=== PATIENT | female | born 1950 | race Caucasian/White ===

== ENCOUNTER 2017-03-15 08:22 | Emergency (ER) | payer OTHER ==
[~2017-03-15] VITALS: Ht 157.5 cm; Wt 59.1 kg
[~2017-03-15 08:22] MED LIST: TYL500 PO
[2017-03-15 08:23] VITALS: Ht 157.5 cm; Wt 59.1 kg
[2017-03-15] MEDS ORDERED: morphine 4 MG/ML VIAL IV STA (08:42)
[2017-03-15] MEDS ORDERED: SOD CHLORIDE 0.9% 500 ML IV STA (08:42)
[2017-03-15] MEDS ORDERED: ONDANSETRON 4 MG INJ IV STA (08:42)
[2017-03-15 09:08] LABS: ADD SCAN DIFF NO
[2017-03-15 09:10] LABS: BASOPHIL # 0.1 10^3/ul (0.0-0.1); BASOPHILS % 1.1 % (0.0-2.0); EOSINOPHILS # 0.1 10^3/ul (0.0-0.5); EOSINOPHILS % 2.2 % (0.0-7.0); HEMOGLOBIN 12.7 g/dl (12.0-16.0); LYMPHOCYTES # 1.4 10^3/ul (0.8-2.9); MEAN CORPUSCULAR HEMOGLOBIN 30.9 pg (29.0-33.0); MEAN CORPUSCULAR HGB CONC 34.3 g/dl (32.0-37.0); MEAN PLATELET VOLUME 8.8 fl (7.4-10.4); MONOCYTE # 0.3 10^3/ul (0.3-0.9); MONOCYTES % 6.5 % (0.0-11.0); NEUTROPHIL # 2.8 10^3/ul (1.6-7.5); PLATELET COUNT 331 10^3/UL (140-415); RED BLOOD COUNT 4.11 10^6/ul (4.20-5.40); RED CELL DISTRIBUTION WIDTH 14.1 % (11.5-14.5); WHITE BLOOD COUNT 4.6 10^3/ul (4.8-10.8)
[2017-03-15 09:23] LABS: ALBUMIN 4.3 g/dl (3.3-4.9)
[2017-03-15 09:24] LABS: POTASSIUM 3.8 mmol/L (3.5-5.1)
[2017-03-15 09:26] LABS: BILIRUBIN,INDIRECT 0.4 mg/dl (0-1.1); BILIRUBIN,TOTAL 0.4 mg/dl (0.2-1.3); CREATININE 0.59 mg/dl (0.44-1.00)
[2017-03-15 09:27] LABS: ALBUMIN/GLOBULIN RATIO 1.19; CALCIUM 9.4 mg/dl (8.4-10.2); TOTAL PROTEIN 7.9 g/dl (6.1-8.1)
[2017-03-15 09:36] LABS: ADD UMIC YES; URINE BILIRUBIN (Dip) NEGATIVE (NEGATIVE); URINE BLOOD (Dip) 1+ (NEGATIVE); URINE COLOR LT. YELLOW (YELLOW); URINE GLUCOSE (Dip) NEGATIVE (NEGATIVE); URINE KETONES (Dip) NEGATIVE (NEGATIVE); URINE LEUKOCYTE ESTERASE (Dip) TRACE (NEGATIVE); URINE NITRITE (Dip) NEGATIVE (NEGATIVE); URINE TOTAL PROTEIN (Dip) NEGATIVE (NEGATIVE); URINE UROBILINOGEN (Dip) 0.2 E.U./dL (0.1-1.0)
[2017-03-15] MEDS ORDERED: LORA-441 PO (10:00)
[2017-03-15] MEDS ORDERED: IBUP400T22 PO (10:00)
--- NOTE | 2017-03-15 10:00 | RADRPT ---
PROCEDURE: CT Head without contrast. CLINICAL INDICATION: Headaches TECHNIQUE: The study was performed utilizing a GE 64-slice multidetector CT scanner. Direct spiral axial CT images of the brain were obtained from the vertex to the skull base without contrast. Cor onal and sagittal reformat images are provided. The CTDI vol is 43.86 mGy and the DLP is 720.23 mGy -cm. The images were reviewed on a PACS workstation. COMPARISON: 05/04/2016 FINDINGS: The ventricles and cortical sulci are within normal limits for the patient's age. The mcdonnell-white ma tter differentiation is maintained. No intra or extra-axial fluid collection or mass effect or shif t in the midline structures is seen. The visualized paranasal sinuses, mastoid air cells, orbits, a nd calvarium are unremarkable. A partial empty sella is seen. IMPRESSION: No acute intracranial pathology. RPTAT: HPNM Physician Di Date Time Electronically viewed and signed by Physician Di on 03/15/2017 10:00 /
--- NOTE | 2017-03-15 10:01 | ERD ---
ER Documentation Chief Complaint Date/Time DATE: 03/15/17 TIME: 10:01 Chief Complaint headache x 1 week got worse today HPI 66-year-old woman complains of posterior headache 1 week similar to previous episodes. She states that this is not the worst headache of her life and also complains of anxiety. Her son was at the bedside states she has been recently anxious due to her recent financial and family issues. She has had no suicidal homicidal ideation, no slurred speech, no weakness in arms or legs, no fevers or chills, no vomiting or diarrhea. ROS All systems reviewed and are negative except as per history of present illness. Medications Home Meds Active Scripts Ibuprofen* (Motrin*) 400 Mg Tab, 400 MG PO Q8 for PAIN AND/OR INFLAMMATION, #30 TAB Prov:CHRISTOPHER GUEVARA MD 03/15/17 Lorazepam* (Ativan*) 0.5 Mg Tablet, 0.5 MG PO BID Y for MUSCLE SPASMS, #10 TAB Prov:CHRISTOPHER GUEVARA MD 03/15/17 Acetaminophen* (Tylenol*) 500 Mg Tab, 500 MG PO Q4H Y for MILD PAIN LEVEL 1-3, # 14 TAB Prov:ALINE ANTUNEZ DO 05/05/16 Allergies Allergies: Coded Allergies: No Known Drug Allergies (Verified Allergy, Unknown, 05/05/16) PMhx/Soc None Hx Cardiac Disorders: Yes (HTN) Hx Psychiatric Problems: No Hx Miscellaneous Medical Probl: Yes (inc cholesterol) Hx Alcohol Use: No Hx Substance Use: No Hx Tobacco Use: No Smoking Status: Never smoker FmHx Family History: diabetes Physical Exam Vitals Vital Signs Date Time Temp Pulse Resp B/P Pulse Ox O2 Delivery O2 Flow Rate FiO2 03/15/17 10:23 68 20 145/76 96 Room Air 03/15/17 08:50 76 17 160/80 94 Room Air 03/15/17 08:23 98.1 80 17 176/82 95 Physical Exam GENERAL: Well-developed, well-nourished, appears anxious HEENT: Moist mucous membranes, pink conjunctiva, no cervical spine tenderness or step-off deformities, no goiter, no jaundice or icterus, extraocular movements intact without pain. No submandibular induration, and no pharyngeal erythema NEURO: Alert and oriented 3, cranial nerves II through XII intact bilaterally, pupils equal round reactive to light, no focal deficits or facial asymmetry, sensation intact distally Strength 5/5 in upper and lower extremities bilaterally CARDIAC: Regular rate and rhythm, no murmurs rubs or gallops LUNGS: Clear bilaterally no wheezing crackles or stridor ABDOMEN: Soft nontender, no guarding, no rigidity, no rebound, no psoas sign no obturator sign. Normoactive bowel sounds SKIN: Warm and dry to touch, no abrasions, contusions, or hematomas, no lacerations, no ecchymosis, no target lesions, and without ulcers EXTREMITIES: No clubbing cyanosis or edema, calves are bilaterally symmetrical, no Homans sign, no popliteal cord sign. Distal pulses equal and bilateral PSYCH: Anxious Result Diagram: 03/15/17 0848 03/15/17 0848 Results 24 hrs Laboratory Tests Test 03/15/17 08:48 03/15/17 09:12 White Blood Count 4.610^3/ul Red Blood Count 4.1110^6/ul Hemoglobin 12.7g/dl Hematocrit 37.0% Mean Corpuscular Volume 90.0fl Mean Corpuscular Hemoglobin 30.9pg Mean Corpuscular Hemoglobin Concent 34.3g/dl Red Cell Distribution Width 14.1% Platelet Count 28275^3/UL Mean Platelet Volume 8.8fl Neutrophils % 60.0% Lymphocytes % 30.0% Monocytes % 6.5% Eosinophils % 2.2% Basophils % 1.1% Nucleated Red Blood Cells % 0.0/100WBC Neutrophils # 2.810^3/ul Lymphocytes # 1.410^3/ul Monocytes # 0.310^3/ul Eosinophils # 0.110^3/ul Basophils # 0.110^3/ul Nucleated Red Blood Cells # 0.010^3/ul Sodium Level 144mmol/L Potassium Level 3.8mmol/L Chloride Level 105mmol/L Carbon Dioxide Level 26mmol/L Anion Gap 17 Blood Urea Nitrogen 15mg/dl Creatinine 0.59mg/dl Glucose Level 119mg/dl Calcium Level 9.4mg/dl Total Bilirubin 0.4mg/dl Direct Bilirubin 0.00mg/dl Indirect Bilirubin 0.4mg/dl Aspartate Amino Transf (AST/SGOT) 24IU/L Alanine Aminotransferase (ALT/SGPT) 30IU/L Alkaline Phosphatase 76IU/L Total Protein 7.9g/dl Albumin 4.3g/dl Globulin 3.60g/dl Albumin/Globulin Ratio 1.19 Lipase 56U/L Urine Color LT. YELLOW Urine Clarity CLEAR Urine pH 6.5 Urine Specific [place] <=1.005 Urine Ketones NEGATIVE Urine Nitrite NEGATIVE Urine Bilirubin NEGATIVE Urine Urobilinogen 0.2 E.U./dL Urine Leukocyte Esterase TRACE Urine Microscopic RBC 0-2/HPF Urine Microscopic WBC 0-2/HPF Urine Squamous Epithelial Cells FEW Urine Hemoglobin 1+ Urine Glucose NEGATIVE% Urine Total Protein NEGATIVE Current Medications Medications (Trade) Dose Ordered Sig/Joselin Route PRN Reason Start Time Stop Time Status Last Admin Dose Admin Sodium Chloride (NS) 500 ml @ 500 mls/hr Q1H STAT IV 03/15/17 08:42 03/15/17 09:41 DC 03/15/17 08:53 Morphine Sulfate (morphine) 4 mg ONCE STAT IV 03/15/17 08:42 03/15/17 08:47 DC 03/15/17 08:54 Ondansetron HCl (Zofran Inj) 4 mg ONCE STAT IV 03/15/17 08:42 03/15/17 08:47 DC 03/15/17 08:54 Ketorolac Tromethamine (Toradol) 15 mg ONCE STAT IV 03/15/17 10:08 03/15/17 10:09 DC 03/15/17 10:15 Procedures/MDM IV line was established patient was placed on waste reduction coordinator rhythm strip revealed a sinus rhythm at about 80 bpm with upright P and T waves. Patient was afebrile I administered 1 L normal saline intravenously, morphine 4 mg IV, Zofran 4 mg IV with good effect. Although for later complaints of pain she was given Toradol [address] scan of the brain was performed that was negative for bleed mass or shift. CBC and electrolytes are normal, liver function tests were normal, troponin was negative, urine analysis negative for infection. Differential diagnoses considered, included but not limited to acute coronary syndrome, pulmonary embolism, aortic dissection, abdominal aortic aneurysm, sepsis, stroke, meningitis, encephalitis, pneumonia, appendicitis, cholecystitis , bowel obstruction, pyelonephritis, nephrolithiasis, cystitis, as well as metabolic, hematologic, and electrolyte abnormalities. As well as abscess, cellulitis, fractures, and dislocations. Patient feels much better at this time, and vital signs are normal, symptoms have improved. I did give strict instructions to return to the ED if symptoms continue or worsen, patient will otherwise follow-up with primary care physician. Patient understood instructions and agreed to plan. Disclaimer: Inadvertent spelling or grammatical errors are likely due to EHR/ dictation software use and do not reflect on the overall quality of patient care. Departure Diagnosis: Primary Impression: Anxiety Additional Impression: Headache Headache type: tension-type Headache chronicity pattern: acute headache Intractability: not intractable Qualified Code: G44.209 - Acute non intractable tension-type headache Condition: Good Patient Instructions: Anxiety Reaction, Headache, Tension CHRISTOPHER GUEVARA MD March 15, 2017 10:01
[2017-03-15 10:08] LABS: SQUAMOUS EPITHELIAL CELL,UR FEW; URINE RBCS 0-2 /HPF (0)
[2017-03-15] MEDS ORDERED: KETOROLAC 15 MG INJ IV STA (10:08)
[2017-03-15 10:23] VITALS: BP 145/76; PULSE 68; RESP 20
== END 2017-03-15 10:26 | disposition home or self-care (01) ==
LOC: E/R 08:22
DX: F41.9 Anxiety disorder, unspecified (principal); G44.209 Tension-type headache, unspecified, not intractable; R40.2142 Coma scale, eyes open, spontaneous, at arrival to emergency department; R40.2252 Coma scale, best verbal response, oriented, at arrival to emergency department; R40.2362 Coma scale, best motor response, obeys commands, at arrival to emergency department; I10 Essential (primary) hypertension
CPT/HCPCS: 36415; 70450; 80053; 81001; 83690; 85025; 96374; 96375; 99285; J1885; J2270; J2405; J7040; 81003

== ENCOUNTER 2017-04-25 13:17 | Inpatient (IN) | payer OTHER ==
[~2017-04-25] VITALS: Ht 152.4 cm; Wt 65.1 kg
[~2017-04-25 13:17] MED LIST changes: +IBUP400T22 PO; +LORA-441 PO
[2017-04-25] MEDS ORDERED: NITROGLYCERIN 2% 1 GM OINT PKT TD STA (14:07)
[2017-04-25] MEDS ORDERED: ASPIRIN 325 MG TAB PO STA (14:07)
[2017-04-25] MEDS ORDERED: ATOR20TA38 PO (14:24)
[2017-04-25] MEDS ORDERED: LOSA50TA6 PO (14:24)
[2017-04-25] MEDS ORDERED: MECLIZINE 12.5 MG TAB PO ONE (14:30)
[2017-04-25 14:32] LABS: BASOPHILS % 0.4 % (0.0-2.0); EOSINOPHILS % 0.1 % (0.0-7.0); HEMATOCRIT 37.1 % (37.0-47.0); HEMOGLOBIN 12.5 g/dl (12.0-16.0); LYMPHOCYTES # 1.3 10^3/ul (0.8-2.9); LYMPHOCYTES % 18.6 % (15.0-51.0); MEAN CORPUSCULAR HEMOGLOBIN 29.9 pg (29.0-33.0); MEAN CORPUSCULAR HGB CONC 33.7 g/dl (32.0-37.0); MEAN CORPUSCULAR VOLUME 88.8 fl (82.0-101.0); MEAN PLATELET VOLUME 8.9 fl (7.4-10.4); MONOCYTE # 0.3 10^3/ul (0.3-0.9); MONOCYTES % 4.6 % (0.0-11.0); NEUTROPHIL # 5.5 10^3/ul (1.6-7.5); PLATELET COUNT 324 10^3/UL (140-415); RED BLOOD COUNT 4.18 10^6/ul (4.20-5.40); RED CELL DISTRIBUTION WIDTH 13.8 % (11.5-14.5); WHITE BLOOD COUNT 7.2 10^3/ul (4.8-10.8)
[2017-04-25 14:40] LABS: INR 0.94; PROTIME 12.6 Sec (12.2-14.2)
[2017-04-25 14:41] LABS: PARTIAL THROMBOPLASTIN TIME 25.9 Sec (25.0-35.0)
[2017-04-25 14:42] LABS: CREATINE KINASE 69 IU/L (23-200)
[2017-04-25 14:43] LABS: CALCIUM 9.8 mg/dl (8.4-10.2); CREATININE 0.53 mg/dl (0.44-1.00)
[2017-04-25 14:44] LABS: ADD SCAN DIFF NO
--- NOTE | 2017-04-25 14:48 | ERA ---
ER Documentation Chief Complaint Date/Time DATE: 04/25/17 TIME: 14:45 Chief Complaint DIZZINESS, WEAKNESS, PAIN ON LEFT SIDE OF BODY, ON AND OFF HPI This is a 66-year-old female referred by primary care physician because of multiple complaints. The patient has multiple complaints that include dizziness , vertigo and chest pain. She states that when she woke up this morning every time she turns her head to the left she has a room spinning sensation that is sudden in onset and sudden offset. During this time she also has had pain to the left side of her body that is dull aching and sharp. The patient also notes left-sided chest pain. She has had this for some time and usually states that when she walks or exerts herself the pain gets worse. She has mild discomfort now that is 2 out of 10. It is not reproducible, no pleuritic pain and no back pain. ROS All systems reviewed and are negative except as per history of present illness. Medications Home Meds Reported Medications Atorvastatin Calcium* (Atorvastatin Calcium*) 20 Mg Tablet, 20 MG PO QHS, #30 TAB 04/25/17 Losartan Potassium* (Losartan Potassium*) 50 Mg Tablet, 50 MG PO DAILY, TAB 04/25/17 Discontinued Scripts Ibuprofen* (Motrin*) 400 Mg Tab, 400 MG PO Q8 for PAIN AND/OR INFLAMMATION, #30 TAB Prov:CHRISTOPHER GUEVARA MD 03/15/17 Lorazepam* (Ativan*) 0.5 Mg Tablet, 0.5 MG PO BID Y for MUSCLE SPASMS, #10 TAB Prov:CHRISTOPHER GUEVARA MD 03/15/17 Acetaminophen* (Tylenol*) 500 Mg Tab, 500 MG PO Q4H Y for MILD PAIN LEVEL 1-3, # 14 TAB Prov:ALINE ANTUNEZ DO 05/05/16 Allergies Allergies: Coded Allergies: codeine (Unverified Adverse Reaction, Unknown, VOMIT, 04/25/17) PMhx/Soc Hx Cardiac Disorders: Yes (HTN) Hx Psychiatric Problems: No Hx Miscellaneous Medical Probl: Yes (inc cholesterol) Hx Alcohol Use: No Hx Substance Use: No Hx Tobacco Use: No FmHx Family History: No diabetes Physical Exam Vitals Vital Signs Date Time Temp Pulse Resp B/P Pulse Ox O2 Delivery O2 Flow Rate FiO2 04/25/17 14:49 82 18 132/73 98 Room Air 04/25/17 13:21 97.9 88 17 170/84 98 Physical Exam General: Well developed, well nourished, no acute distress Head: Normocephalic, atraumatic. Eyes: Pupils equally reactive, EOM intact ENT: Moist mucous membranes Neck: Supple, no lymphadenopathy Respiratory: Lungs clear bilaterally, no distress Cardiovascular: RRR, no murmurs, rubs, or gallops Abdominal: Soft, non-tender, non-distended, no peritoneal signs : Deferred MSK: No edema, no unilateral swelling, 5/5 strength Neurologic: Alert and oriented, moving all extremities, normal speech, no focal weakness, no cerebellar signs, normal rapid alternating movements, reproducible horizontal nystagmus with head movements to the left Skin: No rash Psych: Normal mood Result Diagram: 04/25/17 1410 04/25/17 1410 Results 24 hrs Laboratory Tests Test 04/25/17 14:10 White Blood Count 7.210^3/ul Red Blood Count 4.1810^6/ul Hemoglobin 12.5g/dl Hematocrit 37.1% Mean Corpuscular Volume 88.8fl Mean Corpuscular Hemoglobin 29.9pg Mean Corpuscular Hemoglobin Concent 33.7g/dl Red Cell Distribution Width 13.8% Platelet Count 76390^3/UL Mean Platelet Volume 8.9fl Neutrophils % 76.0% Lymphocytes % 18.6% Monocytes % 4.6% Eosinophils % 0.1% Basophils % 0.4% Nucleated Red Blood Cells % 0.0/100WBC Neutrophils # 5.510^3/ul Lymphocytes # 1.310^3/ul Monocytes # 0.310^3/ul Eosinophils # 0.010^3/ul Basophils # 0.010^3/ul Nucleated Red Blood Cells # 0.010^3/ul Prothrombin Time 12.6Sec Prothrombin Time Ratio 1.0 INR International Normalized Ratio 0.94 Activated Partial Thromboplast Time 25.9Sec Sodium Level 137mmol/L Potassium Level 4.0mmol/L Chloride Level 101mmol/L Carbon Dioxide Level 26mmol/L Anion Gap 14 Blood Urea Nitrogen 10mg/dl Creatinine 0.53mg/dl Glucose Level 103mg/dl Calcium Level 9.8mg/dl Creatine Kinase 69IU/L Creatine Kinase Index 1.2 Creatinine Kinase MB (Mass) 0.83ng/ml Troponin I < 0.012ng/ml Current Medications Medications (Trade) Dose Ordered Sig/Joselin Route PRN Reason Start Time Stop Time Status Last Admin Dose Admin Aspirin (Aspirin) 325 mg ONCE STAT PO 04/25/17 14:07 04/25/17 14:10 DC 04/25/17 15:46 Nitroglycerin (Nitroglycerin 2% Oint) 1 inch ONCE STAT TD 04/25/17 14:07 04/25/17 14:10 DC 04/25/17 14:45 Meclizine HCl (Antivert) 25 mg ONCE ONCE PO 04/25/17 14:30 04/25/17 14:31 DC 04/25/17 14:43 Lorazepam (Ativan) 0.5 mg ONCE ONCE IV 04/25/17 16:30 04/25/17 16:31 DC 04/25/17 16:33 Acetaminophen (Tylenol Tab) 1,000 mg ONCE STAT PO 04/25/17 16:13 04/25/17 16:14 DC 04/25/17 16:33 Ondansetron HCl (Zofran Inj) 4 mg ER BRIDGE PRN IV NAUSEA AND/OR VOMITING 04/25/17 17:00 04/26/17 16:59 Acetaminophen (Tylenol Tab) 650 mg ER BRIDGE PRN PO MILD PAIN/FEVER 04/25/17 17:00 04/26/17 16:59 Procedures/MDM EKG, MONITORS, & DIAGNOSTIC IMAGING: EKG: I reviewed and interpreted a 12-lead EKG. Rhythm: Normal sinus rhythm Ectopy: None Intervals: No abnormalities ST segments: No elevations or depressions T waves: No contiguous inversions Repeat EKG: EKG: I reviewed and interpreted a 12-lead EKG. Rhythm: Normal sinus rhythm Ectopy: None Intervals: No abnormalities ST segments: No elevations or depressions T waves: No contiguous inversions Chest x-ray: I reviewed and interpreted a 1 view of the chest Mediastinum: No enlargement Cardiac silhouette: No cardiomegaly Airspace: Clear lung jacobs bilaterally without evidence of pneumothorax Bones: No evidence of fracture CT brain: No acute intracranial process LAB INTERPRETATION: Negative troponin MEDICAL DECISION MAKING: The patient's history, physical exam and clinical presentation is concerning for possible cardiogenic etiology and acute coronary syndrome. The patient chest pain is exertional and somewhat concerning it does not appear she has had a thorough workup in the past. Additionally, the patient is also describing vertigo that seems very reproducible and consistent with benign positional vertigo. The patient does have pain to the left side of her body but has no motor weakness and her symptoms are not consistent with dissection, VVI or stroke. CT brain would be appropriate to rule out mass or hemorrhage. Aspirin to be held until after CT imaging. Based on the patient's clinical exam and history and risk factors, I have a much lower clinical concern for pulmonary embolism, acute aortic dissection, pneumothorax, pneumonia, cardiac tamponade HEART Score: 4 MACE Rate: 16.6% Shared Decision Making: We had a conversation regarding risk stratification, MACE rate, and the risks, benefits, alternatives of disposition planning options. Disposition planning: Would recommend inpatient hospital sedation given description of exertional chest pain with moderate risk profile. ER COURSE: Meclizine provided. Patient given saline. Patient was given aspirin after negative CT brain. I kept the patient and/or family informed of laboratory and diagnostic imaging results throughout the emergency room course. DISPOSITION PLAN: Telemetry admission for management of chest pain rule out acute coronary syndrome and have risk stratification possible provocative testing. CONSULTATION: Accepting care team and consultations: I discussed the current laboratory data, diagnostic imaging and emergency care provided. Admitting team: Dr. Ogden Admitting team indication: Insurance directed Departure Diagnosis: Primary Impression: Benign positional vertigo Qualified Code: H81.10 - Benign positional vertigo, unspecified laterality Additional Impression: Chest pain Qualified Code: R07.9 - Chest pain, unspecified type Condition: ALLI Hickman MD Apr 25, 2017 14:48
--- NOTE | 2017-04-25 14:51 | RADRPT ---
PROCEDURE: XR Chest. CLINICAL INDICATION: Chest pain TECHNIQUE: AP view of the chest was obtained. COMPARISON: None. FINDINGS: There are atherosclerotic calcifications of the thoracic aorta. The cardiomediastinal silhouette i s within normal limits. The lungs are clear. No pleural effusion or pneumothorax is seen. Visuali zed osseous structures appear intact. IMPRESSION: No evidence of active cardiopulmonary disease. RPTAT: VV .Chuy Albright MD, MD Date Time Electronically viewed and signed by .Chuy Albright MD, on 04/25/2017 14:51 .O/
[2017-04-25 14:56] LABS: CK-MB 0.83 ng/ml (0.0-2.4)
[2017-04-25 15:16] LABS: TROPONIN-I < 0.012 ng/ml (0.00-0.12)
--- NOTE | 2017-04-25 15:26 | RADRPT ---
PROCEDURE: Noncontrast CT Head. CLINICAL INDICATION: Headaches. TECHNIQUE: Noncontrast CT of the head was obtained. The administered radiation dose was CTDI vol = 43.58 mGy, DLP = 630.02 mGy-cm. One or more of the following dose reduction techniques were used: Au tomated exposure control, Adjustment of the mA and/or kV according to patient size, or Use of iterat karen reconstruction technique. COMPARISON: Noncontrast CT of the head from March 15, 2017. FINDINGS: There is minimal generalized cerebral volume loss. Affects volume There are mild vascular calcifications within the intracranial carotid arteries. There is no loss of mcdonnell-white differentiation to suggest acute territorial infarction. There is no acute intracranial hemorrhage or extra-axial fluid collection. There is no mass effect. No midline shift is identified. The orbits are within normal limits. The paranasal sinuses are well aerated. No destructive osseous lesion is identified. IMPRESSION: No significant change. 1. No acute intracranial hemorrhage. 2. Minimal generalized cerebral volume loss. Further findings as detailed above. RPTAT: PP .Ron Davis MD, MD Date Time Electronically viewed and signed by .Ron Davis MD, on 04/25/2017 15:26 .F/
[2017-04-25] MEDS ORDERED: ACETAMINOPHEN 500 MG TAB PO STA (16:13)
[2017-04-25] MEDS ORDERED: LORAZEPAM 2 MG INJ IV ONE (16:30)
[2017-04-25] MEDS ORDERED: ACETAMINOPHEN 325 MG TAB PO PRN (17:00)
[2017-04-25] MEDS ORDERED: ONDANSETRON 4 MG INJ IV PRN ×2 (17:00→18:00)
[2017-04-25] MEDS ORDERED: NACL 0.9% 3 ML SYG IV SCH (18:00)
[2017-04-25] MEDS ORDERED: morphine 2 MG INJ IV PRN (18:00)
[2017-04-25] MEDS ORDERED: MECLIZINE 25 MG TAB PO PRN (18:00)
--- NOTE | 2017-04-25 18:20 | HP ---
Date/Time of Note Date/Time of Note DATE: 04/25/17 TIME: 18:15 Assessment/Plan VTE Prophylaxis VTE Prophylaxis Intervention: LMWH Lines/Catheters IV [facility]from [facility] Saline Lock Assessment/Plan Chief Complaint/Hosp Course 1. Chest pain. To rule out acute coronary syndrome. Serial troponins will be obtained. A 2D echocardiogram will be obtained. Cardiology consult will be obtained. 2. Vertigo. Etiology unclear. Most probably benign paroxysmal positional vertigo. Brain CT scan negative. Will obtain orthostatic vital signs. Will start the patient on as needed labyrinthine sedatives. Will obtain a neurology consult. Will obtain a carotid Doppler study to evaluate for any carotid artery disease. 3. Essential hypertension. The patient will be resumed on her home antihypertensives. The patient will also be maintained on as needed antihypertensives for any systolic blood pressures greater than 160 mmHg. 4. Dyslipidemia. The patient will be continued on statins. A fasting lipid panel will be obtained. 5. Diarrhea. Most probably from viral gastroenteritis. We will obtain stool studies. Plan: The patient will be admitted to inpatient telemetry floor. The patient will be started on a low-cholesterol diet. The patient will be started on DVT prophylaxis and gastrointestinal prophylaxis. The patient will remain a full code. Activities will be with assist. The rest of the patient's management will be based on the clinical course, inputs from consultants, and the results of diagnostic studies. Based on the patient's clinical presentation, she most probably requires at least one midnight's stay for further management and evaluation of her clinical presentation. The case and management of this patient was fully discussed with Dr. Odgen. Problems: HPI/ROS Admit Date/Time Admit Date/Time Hx of Present Illness Reason for admission: Sent in by primary MD for further evaluation of dizziness , weakness, and chest pain. Consultants 1. Nikolay Yuan MD, Cardiology. 2. Neo Hinds MD, Neurology. This is a 66-year-old female with past medical history of essential hypertension and dyslipidemia who went to visit her primary care physician because of multiple complaints. The patient's physician referred the patient to the ER for further evaluation. The patient reported that she was completely fine on the night of 04/24/2017. Starting on the morning of 04/25/2017 she started feeling dizziness with vertigo and 2 episodes of nonbilious nonbloody vomiting. Patient also reported 3-4 episodes of watery diarrhea. Patient also reported left-sided chest pain that has been constant with no radiation. She reported no diaphoresis. She denied any fevers, chills, abdominal pain, hematochezia, melena, dysuria, hematuria, or pyuria. The patient verbalized that she had a complete cardiac workup done approximately an year ago with a 2D echocardiogram and treadmill test that was reportedly negative. In the emergency room, the patient's initial troponins were negative. The patient's CBC and BMP were within normal limits. The patient underwent a brain CT scan that showed no acute intracranial hemorrhage. The patient's chest x- ray was negative for any active cardiopulmonary disease. Patient's 12-lead EKG showed right bundle branch block. The patient was treated with a single dose of lorazepam, meclizine, aspirin, and transdermal nitroglycerin. The patient had a blood pressure of 170/84 upon presentation. ROS Constitutional: fatigue, nausea Eyes: no complaints ENT: no complaints Respiratory: no complaints Cardiovascular: chest pain, lightheadedness Gastrointestinal: diarrhea, nausea, vomiting Genitourinary: no complaints Musculoskeletal: no complaints Skin: no complaints Neurologic: dizziness Endocrine: no complaints Lymphatic: no complaints Psychological: no complaints Immunologic: no complaints PMH/Family/Social Past Medical History Medical History: high cholesterol, hypertension Past Surgical History Past Surgical Hx: other () Family History Significant Family History: heart disease (In father and siblings.) Social History The patient lives at home with her family Alcohol Use: none Smoking Status: Never smoker Drug Use: none Exam/Review of Systems Vital Signs Vitals Vital Signs Date Time Temp Pulse Resp B/P Pulse Ox O2 Delivery O2 Flow Rate FiO2 04/25/17 14:49 82 18 132/73 98 Room Air 04/25/17 13:21 97.9 Exam Exam General: Adequately build 66 year-old female lying in bed in no apparent distress. HEENT: Normocephalic, atraumatic. Eyes: Anicteric sclerae, conjunctivae clear. ENT: Nasal septum midline, oral mucosa moist. Neck supple, no JVD noticed. Respiratory: Bilaterally clear breath sounds. No use of accessory muscles of respiration. No adventitious breath sounds. Cardiovascular: S1, S2 heard. Regular rate and rhythm Abdomen: Soft, nontender, and nondistended. Bowel sounds positive in all 4 quadrants. Genitourinary: Deferred. Extremities: No cyanosis, no clubbing, no edema. Peripheral pulses palpable. Neurologic: Cranial nerves II through XII grossly intact. The patient is awake, alert, and oriented. Equal strength in all 4 extremities. No focal weakness. Skin: Normal skin turgor. No skin rashes. Labs Result Diagram: 04/25/17 1410 04/25/17 1410 Medications Medications Current Medications Ondansetron HCl (Zofran Inj) 4 mg Q6H PRN IV NAUSEA AND/OR VOMITING; Start at 18:00 Aspirin (Aspirin) 81 mg DAILY PO ; Start 04/26/17 at 09:00; Status UNV Morphine Sulfate (morphine) 2 mg Q4H PRN IV PAIN LEVEL 7-10; Start 04/25/17 at 18:00; Status UNV Famotidine (Pepcid) 20 mg Q12 PO ; Start 04/25/17 at 21:00; Status UNV Enoxaparin Sodium (Lovenox) 40 mg DAILY SC ; Start 04/26/17 at 09:00; Status UNV Meclizine HCl (Antivert) 25 mg TID PRN PO Vertigo; Start 04/25/17 at 18:00; Status UNV Hydralazine HCl (Apresoline) 10 mg Q6H PRN IV SBP>160; Start 04/25/17 at 18:30 ; Status UNV Atorvastatin Calcium (Lipitor) 20 mg QHS PO ; Start 04/25/17 at 21:00; Status UNV Losartan Potassium (Cozaar) 50 mg DAILY PO ; Start 04/26/17 at 09:00; Status UNV Procedures Procedures Brain CT Scan No acute intracranial process CXR No acute cardiopulmonary process. Twelve-lead EKG Right bundle branch block. GRACE ISSA NP Apr 25, 2017 18:20
[2017-04-25] MEDS ORDERED: hydrALAzine 20 MG INJ IV PRN (18:30)
[2017-04-25 19:56] LABS: CREATINE KINASE 58 IU/L (23-200)
[2017-04-25 20:08] LABS: CK-MB 0.64 ng/ml (0.0-2.4)
[2017-04-25 20:10] LABS: TROPONIN-I < 0.012 ng/ml (0.00-0.12)
[2017-04-25 20:32] LABS: THYROID STIMULATING HORMONE 0.544 MIU/L (0.465-4.680)
[2017-04-25 22:38] VITALS: Ht 152.4 cm; Wt 65.1 kg
[2017-04-25 22:42] VITALS: PULSE 67
[2017-04-25] MEDS: FAMOTIDINE 20 MG TAB PO SCH (22:55)
[2017-04-25] MEDS: ATORVASTATIN 20 MG TAB PO SCH (22:55)
[2017-04-25 23:00] VITALS: BP 128/66; PULSE 69; RESP 18
--- NOTE | 2017-04-25 23:05 | RADRPT ---
PROCEDURE: Carotid ultrasound CLINICAL INDICATION: Dizziness, carotid bruits TECHNIQUE: Dai scale, color doppler, spectral doppler ultrasound of the bilateral carotid and jerry tebral arteries. This study indirectly references the measurement of the distal ICA diameter as the denominator for s tenosis measurement. Validated velocity measurements with angiographic measurements, velocity criter ia are extrapolated from diameter data as defined by: *Cartoid artery stenosis: dai-scale and Doppl er US diagnosis. Society of Radiologists in Ultrasound Consensus Conference. Radiology 2003; 229: 34 0-346. SRU Consensus Conference Criteria for the Diagnosis of Carotid Artery Stenosis* Degree of Stenosis, % ICA PSV, cm/sec Plaque Estimate, % ICA/CCA PSV Ratio Normal <125 None <2.0 <50 <125 <50 <2.0 50 69 125-230 >50 2.0-4.0 >70 but less than near occlusion >230 >50 <4.0 Near occlusion High, low, or undetectable Visible Variable Total occlusion Undetectable Visible, no detectable lumen Not applicable COMPARISON: No prior studies are available for comparison. FINDINGS: Location Right CCA63 cm/sec Prox ICA 49 cm/sec Mid ICA61 cm/sec Dist ICA76 cm/sec ECA50 cm/sec ICA/CCA1.6 Left CCA62 cm/sec Prox ICA 56 cm/sec Mid PWG647 cm/sec Dist PYN023 cm/sec ECA71 cm/sec ICA/CCA2.0 Plaque burden: Poor visualization of the left internal carotid artery due to tortuosity. No evidence of right carotid plaque. Antegrade flow is seen within the vertebral arteries bilaterally. IMPRESSION: Elevated peak systolic velocities are measured within the left internal carotid artery however the v essel is very tortuous which degrades evaluation of plaque burden. Elevated velocities suggest a 50 - 69% stenosis however it is uncertain whether this is due to tortuosity or poorly visualized plaqu e. CT angiography of the extracranial circulation can be obtained for further evaluation. RPTAT: AADD .Soham Rayo MD, Date Time Electronically viewed and signed by .Soham Rayo MD, on 04/25/2017 23:04 .B/
[2017-04-26] VITALS (12 sets, daily range): BP systolic 108–143; BP diastolic 53–68; PULSE 59–72; RESP 15–18
[2017-04-26 02:22] LABS: CREATINE KINASE 53 IU/L (23-200)
[2017-04-26 02:34] LABS: CK-MB 0.63 ng/ml (0.0-2.4)
[2017-04-26 02:35] LABS: TROPONIN-I < 0.012 ng/ml (0.00-0.12)
[2017-04-26 08:39] LABS: BASOPHILS % 0.6 % (0.0-2.0); EOSINOPHILS # 0.1 10^3/ul (0.0-0.5); EOSINOPHILS % 2.9 % (0.0-7.0); HEMATOCRIT 34.7 % (37.0-47.0); HEMOGLOBIN 11.7 g/dl (12.0-16.0); LYMPHOCYTES # 2.1 10^3/ul (0.8-2.9); LYMPHOCYTES % 43.1 % (15.0-51.0); MEAN CORPUSCULAR HEMOGLOBIN 30.5 pg (29.0-33.0); MEAN CORPUSCULAR HGB CONC 33.7 g/dl (32.0-37.0); MEAN CORPUSCULAR VOLUME 90.4 fl (82.0-101.0); MEAN PLATELET VOLUME 9.1 fl (7.4-10.4); MONOCYTE # 0.5 10^3/ul (0.3-0.9); MONOCYTES % 9.8 % (0.0-11.0); NEUTROPHIL # 2.1 10^3/ul (1.6-7.5); NEUTROPHILS % 43.6 % (39.0-77.0); PLATELET COUNT 304 10^3/UL (140-415); RED BLOOD COUNT 3.84 10^6/ul (4.20-5.40); RED CELL DISTRIBUTION WIDTH 13.8 % (11.5-14.5); WHITE BLOOD COUNT 4.9 10^3/ul (4.8-10.8)
[2017-04-26 09:06] LABS: CHOL/HDL RATIO 4.3 RATIO
[2017-04-26 09:09] LABS: ALBUMIN 4.2 g/dl (3.3-4.9); ALBUMIN/GLOBULIN RATIO 1.61; BILIRUBIN,INDIRECT 0.4 mg/dl (0-1.1); BILIRUBIN,TOTAL 0.4 mg/dl (0.2-1.3); CALCIUM 9.7 mg/dl (8.4-10.2); CREATININE 0.59 mg/dl (0.44-1.00); POTASSIUM 4.2 mmol/L (3.5-5.1); TOTAL PROTEIN 6.8 g/dl (6.1-8.1)
[2017-04-26] MEDS: FAMOTIDINE 20 MG TAB PO SCH ×2 (09:17→20:08)
[2017-04-26] MEDS: LOSARTAN 50 MG TAB PO SCH (09:18)
[2017-04-26] MEDS: ASPIRIN 81 MG TAB PO SCH (09:18)
[2017-04-26] MEDS: ENOXAPARIN 40 MG/0.4 ML SYG SC SCH (09:23)
[2017-04-26 11:21] LABS: CREATINE KINASE 43 IU/L (23-200); MAGNESIUM 2.1 mg/dl (1.7-2.5)
[2017-04-26 11:34] LABS: CK-MB 0.59 ng/ml (0.0-2.4)
[2017-04-26 11:35] LABS: TROPONIN-I < 0.012 ng/ml (0.00-0.12)
--- NOTE | 2017-04-26 13:18 | PN ---
Date/Time of Note Date/Time of Note DATE: 04/26/17 TIME: 13:17 Assessment/Plan VTE Prophylaxis VTE Prophylaxis Intervention: SCD's Lines/Catheters IV C[facility]ter Type (from [facility] [place] Assessment/Plan Chief Complaint/Hosp Course 1. Chest pain. To rule out acute coronary syndrome. Serial troponins negative so far. Pending 2D echocardiogram. Cardiology evaluation pending 2. Vertigo. Etiology unclear. Most probably benign paroxysmal positional vertigo. Brain CT scan negative. Continue orthostatic vital signs. Will continue the patient on labyrinthine sedatives. Pending neurology consult. Carotid Doppler study showing elevated peak systolic velocities in the left internal carotid artery suggesting 50-69% stenosis. Will obtain a CT angiogram of the neck to further evaluate this finding. 3. Essential hypertension. Continue antihypertensives including PRN antihypertensives for any systolic blood pressures greater than 160 mmHg. 4. Dyslipidemia. The patient will be continued on statins. Fasting lipid panel suboptimal. 5. Diarrhea. Most probably viral gastroenteritis. Pending stool studies. 6. Prediabetes. Hemoglobin A1c 6.3. We will reinforce a low carbohydrate diet. Obtain dietary consult. 7. Fluids, electrolytes, and nutrition. Low-cholesterol diet. 8. DVT prophylaxis. Bilateral sequential compression devices. 9. Gastrointestinal prophylaxis with histamine 2 receptor blockers. Plan. Continue telemetry monitoring. Continue as needed meclizine. Await neurology and cardiology evaluation. Obtain neck CTA. Obtain brain MRI. Case discussed with . Problems: Subjective 24 Hr Interval Summary Free Text/Dictation Denies any chest pain. Still complaining of episodes of dizziness. Complains of nausea. Exam/Review of Systems Vital Signs Vitals Vital Signs Date Time Temp Pulse Resp B/P Pulse Ox O2 Delivery O2 Flow Rate FiO2 04/26/17 12:06 72 04/26/17 12:00 98.0 18 112/67 98 04/26/17 04:00 Room Air Intake and Output 04/25/17 04/25/17 04/26/17 15:00 23:00 07:00 Intake Total 240 ml Balance 240 ml Exam General: Adequately build 66 year-old female lying in bed in no apparent distress. HEENT: Normocephalic, atraumatic. Eyes: Anicteric sclerae, conjunctivae clear. ENT: Nasal septum midline, oral mucosa moist. Neck supple, no JVD noticed. Respiratory: Bilaterally clear breath sounds. No use of accessory muscles of respiration. No adventitious breath sounds. Cardiovascular: S1, S2 heard. Regular rate and rhythm Abdomen: Soft, nontender, and nondistended. Bowel sounds positive in all 4 quadrants. Genitourinary: Deferred. Extremities: No cyanosis, no clubbing, no edema. Peripheral pulses palpable. Neurologic: Cranial nerves II through XII grossly intact. The patient is awake, alert, and oriented. Equal strength in all 4 extremities. No focal weakness. Skin: Normal skin turgor. No skin rashes. Results Result Diagram: 04/26/17 0744 04/26/17 0741 Results 24 hrs Laboratory Tests Test 04/25/17 14:10 04/25/17 18:04 04/25/17 19:00 04/26/17 01:45 White Blood Count 7.2 # Red Blood Count 4.18 L Hemoglobin 12.5 Hematocrit 37.1 Mean Corpuscular Volume 88.8 Mean Corpuscular Hemoglobin 29.9 Mean Corpuscular Hemoglobin Concent 33.7 Red Cell Distribution Width 13.8 Platelet Count 324 Mean Platelet Volume 8.9 Neutrophils % 76.0 Lymphocytes % 18.6 Monocytes % 4.6 Eosinophils % 0.1 Basophils % 0.4 Nucleated Red Blood Cells % 0.0 Neutrophils # 5.5 Lymphocytes # 1.3 Monocytes # 0.3 Eosinophils # 0.0 Basophils # 0.0 Nucleated Red Blood Cells # 0.0 Prothrombin Time 12.6 Prothrombin Time Ratio 1.0 INR International Normalized Ratio 0.94 Activated Partial Thromboplast Time 25.9 Sodium Level 137 Potassium Level 4.0 Chloride Level 101 Carbon Dioxide Level 26 Anion Gap 14 Blood Urea Nitrogen 10 Creatinine 0.53 Glucose Level 103 Calcium Level 9.8 Creatine Kinase 69 58 53 Creatine Kinase Index 1.2 1.1 1.2 Creatinine Kinase MB (Mass) 0.83 0.64 0.63 Troponin I < 0.012 < 0.012 < 0.012 Vitamin D 1,25-Dihydroxy 30.0 Hemoglobin A1c 6.3 H Vitamin B12 Level > 1000 H Thyroid Stimulating Hormone (TSH) 0.544 Free Thyroxine 0.99 Test 04/26/17 07:41 04/26/17 07:44 04/26/17 10:30 Sodium Level 142 Potassium Level 4.2 Chloride Level 102 Carbon Dioxide Level 26 Anion Gap 18 H Blood Urea Nitrogen 10 Creatinine 0.59 Glucose Level 101 Calcium Level 9.7 Total Bilirubin 0.4 Direct Bilirubin 0.00 Indirect Bilirubin 0.4 Aspartate Amino Transf (AST/SGOT) 22 Alanine Aminotransferase (ALT/SGPT) 29 Alkaline Phosphatase 52 Total Protein 6.8 Albumin 4.2 Globulin 2.60 Albumin/Globulin Ratio 1.61 Triglycerides Level 165 H Cholesterol Level 226 H LDL Cholesterol, Calculated 141 HDL Cholesterol 52 Cholesterol/HDL Ratio 4.3 White Blood Count 4.9 # Red Blood Count 3.84 L Hemoglobin 11.7 L Hematocrit 34.7 L Mean Corpuscular Volume 90.4 Mean Corpuscular Hemoglobin 30.5 Mean Corpuscular Hemoglobin Concent 33.7 Red Cell Distribution Width 13.8 Platelet Count 304 Mean Platelet Volume 9.1 Neutrophils % 43.6 Lymphocytes % 43.1 Monocytes % 9.8 Eosinophils % 2.9 Basophils % 0.6 Nucleated Red Blood Cells % 0.0 Neutrophils # 2.1 Lymphocytes # 2.1 Monocytes # 0.5 Eosinophils # 0.1 Basophils # 0.0 Nucleated Red Blood Cells # 0.0 Phosphorus Level 3.0 Magnesium Level 2.1 Creatine Kinase 43 Creatine Kinase Index 1.4 Creatinine Kinase MB (Mass) 0.59 Troponin I < 0.012 Medications Medications Current Medications Ondansetron HCl (Zofran Inj) 4 mg Q6H PRN IV NAUSEA AND/OR VOMITING Last administered on 04/26/17 12:22; Admin Dose 4 MG; Start 04/25/17 at 18:00 Aspirin (Aspirin) 81 mg DAILY PO Last administered on 04/26/17 09:18; Admin Dose 81 MG; Start 04/26/17 at 09:00 Morphine Sulfate (morphine) 2 mg Q4H PRN IV PAIN LEVEL 7-10; Start 04/25/17 at 18:00 Famotidine (Pepcid) 20 mg Q12 PO Last administered on 04/26/17 09:17; Admin Dose 20 MG; Start 04/25/17 at 21:00 Enoxaparin Sodium (Lovenox) 40 mg DAILY SC Last administered on 04/26/17 09:23 ; Admin Dose 40 MG; Start 04/26/17 at 09:00 Hydralazine HCl (Apresoline) 10 mg Q6H PRN IV SBP>160; Start 04/25/17 at 18:30 Atorvastatin Calcium (Lipitor) 20 mg QHS PO Last administered on 04/25/17 22: 55; Admin Dose 20 MG; Start 04/25/17 at 21:00 Losartan Potassium (Cozaar) 50 mg DAILY PO Last administered on 04/26/17 09:18 ; Admin Dose 50 MG; Start 04/26/17 at 09:00 Acetaminophen (Tylenol Tab) 500 mg Q6H PRN PO PAIN AND OR ELEVATED TEMP; Start 04/25/17 at 18:30 Meclizine HCl (Antivert) 25 mg Q6H PRN PO Vertigo; Start 04/26/17 at 14:00 GRACE ISSA NP Apr 26, 2017 13:18
[2017-04-26] MEDS: MECLIZINE 25 MG TAB PO PRN ×2 (14:58→20:08)
[2017-04-26] MEDS ORDERED: IOHEXOL 100 ML ONE (16:05)
[2017-04-26] MEDS ORDERED: SOD CHLORIDE 0.9% 100 ML ONE (16:05)
--- NOTE | 2017-04-26 16:26 | RADRPT ---
PROCEDURE: CTA Neck. CLINICAL INDICATION: Carotid stenosis TECHNIQUE: The study was performed utilizing a multidetector CT scanner. Thin cut axial sections w ere obtained through the neck with the use of 100 cc of Isovue 370 nonionic intravenous contrast mat erial. Coronal and sagittal maximal intensity projection reformations were obtained. Additional 3D volumetric renderings were created. The images were reviewed on a PACS workstation. The total CTDI vol is 54/20 mGy and the DLP is 495 mGy-cm. One or more of the following dose reduction techniques w ere used: Automated exposure control, Adjustment of the mA and/or kV according to patient size, and/ or use of iterative reconstruction technique. COMPARISON: Carotid ultrasound 04/25/2017 FINDINGS: Mild tortuosity of the bilateral internal carotid arteries. No significant stenosis or vessel dissec tion of the bilateral common carotid, bilateral cervical internal carotid or bilateral vertebral art eries. Dominant left vertebral artery. Multilevel degenerative changes of the spine. 1.6 cm right thyroid nodule. IMPRESSION: No significant cervical arterial stenosis or evidence of dissection. Prior questionable left carotid stenosis on ultrasound may be related to vessel tortuosity. 1.6 mm right thyroid nodule. Recommend ultrasound for further characterization. RPTAT: AA .Seamus Brannon MD, Date Time Electronically viewed and signed by .Seamus Brannon MD, on 04/26/2017 16:26 .T/
--- NOTE | 2017-04-26 17:30 | CONS ---
Date/Time of Note Date/Time of Note DATE: 04/26/17 TIME: 17:26 Assessment/Plan Assessment/Plan Additional Assessment/Plan 1. Chest pain. To rule out acute coronary syndrome. Serial troponins will be obtained. A 2D echocardiogram will be obtained. Cardiology consult will be obtained. R/o NC - will monitor for now. Yaakov consider in-pt vs outpt stress test. 2. Vertigo. Etiology unclear. Most probably benign paroxysmal positional vertigo. Brain CT scan negative. Will obtain orthostatic vital signs. Will start the patient on as needed labyrinthine sedatives. Will obtain a neurology consult. Will obtain a carotid Doppler study to evaluate for any carotid artery disease. 3. Essential hypertension. The patient will be resumed on her home antihypertensives. The patient will also be maintained on as needed antihypertensives for any systolic blood pressures greater than 160 mmHg. BETTER now. 4. Dyslipidemia. The patient will be continued on statins. A fasting lipid panel will be obtained. 5. Diarrhea. Most probably viral gastroenteritis. We will obtain stool studies. Consultation Date/Type/Reason Admit Date/Time Apr 25, 2017 at 16:47 Initial Consult Date 24 HR Interval Summary Free Text/Dictation Cardiology Consult CC: CP 66 yo with HTn now with reports of dizziness and chest discomfort - still dizzy. R/o NC - inc RBBB on ECG - will monitor for now - awaiting ECHO. PMH: HTN, dizziness, inc rbbb Meds: reviewed All: Codein FH: HTN Exam/Review of Systems Vital Signs Vitals Vital Signs Date Time Temp Pulse Resp B/P Pulse Ox O2 Delivery O2 Flow Rate FiO2 04/26/17 16:54 71 04/26/17 12:00 98.0 18 112/67 98 04/26/17 04:00 Room Air Intake and Output 04/25/17 04/25/17 04/26/17 15:00 23:00 07:00 Intake Total 240 ml Balance 240 ml Exam ROS: No fever, no chills, no nausea, no vomiting, no diarrhea/constipation No recent weight changes + chest pain, no PND, no orthopnea No dizziness, blurred vision No thirst, no heat or cold intolerance General: WN/WD/NAD, AOx3 HEENT: Unicetric/atraumatic/EOMI (follows commands) NECK: JVD elevated, no thyromegaly Lymph: no lymphadenopathy HEART: regular with no S3, II/ systolic murmur at apex LUNGS: Coarse sounds ABD: soft, NT, ND, +BS : Intact Neuro: non focal SKIN: chronic changes EXT: trace edema Results Result Diagram: 04/26/17 0744 04/26/17 0741 Results 24 hrs Laboratory Tests Test 04/25/17 18:04 04/25/17 19:00 04/26/17 01:45 04/26/17 07:41 Vitamin D 1,25-Dihydroxy 30.0 Hemoglobin A1c 6.3 H Creatine Kinase 58 53 Creatine Kinase Index 1.1 1.2 Creatinine Kinase MB (Mass) 0.64 0.63 Troponin I < 0.012 < 0.012 Vitamin B12 Level > 1000 H Thyroid Stimulating Hormone (TSH) 0.544 Free Thyroxine 0.99 Sodium Level 142 Potassium Level 4.2 Chloride Level 102 Carbon Dioxide Level 26 Anion Gap 18 H Blood Urea Nitrogen 10 Creatinine 0.59 Glucose Level 101 Calcium Level 9.7 Total Bilirubin 0.4 Direct Bilirubin 0.00 Indirect Bilirubin 0.4 Aspartate Amino Transf (AST/SGOT) 22 Alanine Aminotransferase (ALT/SGPT) 29 Alkaline Phosphatase 52 Total Protein 6.8 Albumin 4.2 Globulin 2.60 Albumin/Globulin Ratio 1.61 Triglycerides Level 165 H Cholesterol Level 226 H LDL Cholesterol, Calculated 141 HDL Cholesterol 52 Cholesterol/HDL Ratio 4.3 Test 04/26/17 07:44 04/26/17 10:30 White Blood Count 4.9 # Red Blood Count 3.84 L Hemoglobin 11.7 L Hematocrit 34.7 L Mean Corpuscular Volume 90.4 Mean Corpuscular Hemoglobin 30.5 Mean Corpuscular Hemoglobin Concent 33.7 Red Cell Distribution Width 13.8 Platelet Count 304 Mean Platelet Volume 9.1 Neutrophils % 43.6 Lymphocytes % 43.1 Monocytes % 9.8 Eosinophils % 2.9 Basophils % 0.6 Nucleated Red Blood Cells % 0.0 Neutrophils # 2.1 Lymphocytes # 2.1 Monocytes # 0.5 Eosinophils # 0.1 Basophils # 0.0 Nucleated Red Blood Cells # 0.0 Phosphorus Level 3.0 Magnesium Level 2.1 Creatine Kinase 43 Creatine Kinase Index 1.4 Creatinine Kinase MB (Mass) 0.59 Troponin I < 0.012 Medications Medications Current Medications Ondansetron HCl (Zofran Inj) 4 mg Q6H PRN IV NAUSEA AND/OR VOMITING Last administered on 04/26/17 12:22; Admin Dose 4 MG; Start 04/25/17 at 18:00 Aspirin (Aspirin) 81 mg DAILY PO Last administered on 04/26/17 09:18; Admin Dose 81 MG; Start 04/26/17 at 09:00 Morphine Sulfate (morphine) 2 mg Q4H PRN IV PAIN LEVEL 7-10; Start 04/25/17 at 18:00 Famotidine (Pepcid) 20 mg Q12 PO Last administered on 04/26/17 09:17; Admin Dose 20 MG; Start 04/25/17 at 21:00 Enoxaparin Sodium (Lovenox) 40 mg DAILY SC Last administered on 04/26/17 09:23 ; Admin Dose 40 MG; Start 04/26/17 at 09:00 Hydralazine HCl (Apresoline) 10 mg Q6H PRN IV SBP>160; Start 04/25/17 at 18:30 Atorvastatin Calcium (Lipitor) 20 mg QHS PO Last administered on 04/25/17 22: 55; Admin Dose 20 MG; Start 04/25/17 at 21:00 Losartan Potassium (Cozaar) 50 mg DAILY PO Last administered on 04/26/17 09:18 ; Admin Dose 50 MG; Start 04/26/17 at 09:00 Acetaminophen (Tylenol Tab) 500 mg Q6H PRN PO PAIN AND OR ELEVATED TEMP; Start 04/25/17 at 18:30 Meclizine HCl (Antivert) 25 mg Q6H PRN PO Vertigo Last administered on 14:58; Admin Dose 25 MG; Start 04/26/17 at 14:00 LINDSEY HAMILTON MD Apr 26, 2017 17:30
--- NOTE | 2017-04-26 17:34 | CONS ---
Date/Time of Note Date/Time of Note DATE: 04/26/17 TIME: 17:27 Assessment/Plan Assessment/Plan Chief Complaint/Hosp Course NEUROLOGIC EXAMINATION: She is awake, alert, and oriented x 3 with fluent speech. Cranial nerve examination shows intact visual jacobs bilaterally. Pupils round, reactive to light from 3 to 2 mm bilaterally. Extraocular movements intact without nystagmus. Symmetrical face. Preserved facial strength and sensation. Tongue is in midline. Palate elevates symmetrically. Motor strength examination is preserved in all extremities. Normal bulk, tone, and strength. Sensory examination shows normal perception of pinprick and touch. Deep tendon reflexes 2+ . Downgoing toes bilaterally. Coordination preserved on [id number] testing. No dysmetria or tremor. Gait was not assessed. Rakel-Hallpike maneuver no vertigo nor nystagmus IMPRESSION: Acute vertigo, resolving. Likely BPPV. MRI to r/o CVA. Cont meclizine, ASA, statin keep euglycemic, normotensive, Problems: Consultation Date/Type/Reason Admit Date/Time Hx of Present Illness 66 y/o female with HTN, dyslipidemia, developed severe positional vertigo yesterday, better now. At onset, CP, N, left sided pain and possible numbness? no weakness, headache, diplopia, dysphagia, hearing loss nor tinnitus Eyes: no complaints ENT: no complaints Respiratory: no complaints Cardiovascular: chest pain, lightheadedness Gastrointestinal: diarrhea, nausea, vomiting Genitourinary: no complaints Musculoskeletal: no complaints Skin: no complaints Neurologic: dizziness Lymphatic: no complaints Psychological: no complaints Immunologic: no complaints Past Medical History Medical History: high cholesterol, hypertension Past Surgical History Past Surgical Hx: other () Family History Significant Family History: no pertinent family hx Social History Alcohol Use: none Smoking Status: Never smoker Drug Use: none Exam/Review of Systems Vital Signs Vitals Vital Signs Date Time Temp Pulse Resp B/P Pulse Ox O2 Delivery O2 Flow Rate FiO2 04/26/17 16:54 71 04/26/17 12:00 98.0 18 112/67 98 04/26/17 04:00 Room Air Intake and Output 04/25/17 04/25/17 04/26/17 15:00 23:00 07:00 Intake Total 240 ml Balance 240 ml Exam Constitutional: alert, well developed Head: atraumatic, normocephalic Neck: non-tender, supple Respiratory: clear to auscultation Cardiovascular: regular rate and rhythm Gastrointestinal: non-tender, soft Extremities: normal pulses Results Result Diagram: 04/26/17 0744 04/26/17 0741 Results 24 hrs Laboratory Tests Test 04/25/17 18:04 04/25/17 19:00 04/26/17 01:45 04/26/17 07:41 Vitamin D 1,25-Dihydroxy 30.0 Hemoglobin A1c 6.3 H Creatine Kinase 58 53 Creatine Kinase Index 1.1 1.2 Creatinine Kinase MB (Mass) 0.64 0.63 Troponin I < 0.012 < 0.012 Vitamin B12 Level > 1000 H Thyroid Stimulating Hormone (TSH) 0.544 Free Thyroxine 0.99 Sodium Level 142 Potassium Level 4.2 Chloride Level 102 Carbon Dioxide Level 26 Anion Gap 18 H Blood Urea Nitrogen 10 Creatinine 0.59 Glucose Level 101 Calcium Level 9.7 Total Bilirubin 0.4 Direct Bilirubin 0.00 Indirect Bilirubin 0.4 Aspartate Amino Transf (AST/SGOT) 22 Alanine Aminotransferase (ALT/SGPT) 29 Alkaline Phosphatase 52 Total Protein 6.8 Albumin 4.2 Globulin 2.60 Albumin/Globulin Ratio 1.61 Triglycerides Level 165 H Cholesterol Level 226 H LDL Cholesterol, Calculated 141 HDL Cholesterol 52 Cholesterol/HDL Ratio 4.3 Test 04/26/17 07:44 04/26/17 10:30 White Blood Count 4.9 # Red Blood Count 3.84 L Hemoglobin 11.7 L Hematocrit 34.7 L Mean Corpuscular Volume 90.4 Mean Corpuscular Hemoglobin 30.5 Mean Corpuscular Hemoglobin Concent 33.7 Red Cell Distribution Width 13.8 Platelet Count 304 Mean Platelet Volume 9.1 Neutrophils % 43.6 Lymphocytes % 43.1 Monocytes % 9.8 Eosinophils % 2.9 Basophils % 0.6 Nucleated Red Blood Cells % 0.0 Neutrophils # 2.1 Lymphocytes # 2.1 Monocytes # 0.5 Eosinophils # 0.1 Basophils # 0.0 Nucleated Red Blood Cells # 0.0 Phosphorus Level 3.0 Magnesium Level 2.1 Creatine Kinase 43 Creatine Kinase Index 1.4 Creatinine Kinase MB (Mass) 0.59 Troponin I < 0.012 Medications Medications Current Medications Ondansetron HCl (Zofran Inj) 4 mg Q6H PRN IV NAUSEA AND/OR VOMITING Last administered on 04/26/17t 12:22; Admin Dose 4 MG; Start 04/25/17 at 18:00 Aspirin (Aspirin) 81 mg DAILY PO Last administered on 04/26/17 09:18; Admin Dose 81 MG; Start 04/26/17 at 09:00 Morphine Sulfate (morphine) 2 mg Q4H PRN IV PAIN LEVEL 7-10; Start 04/25/17 at 18:00 Famotidine (Pepcid) 20 mg Q12 PO Last administered on 04/26/17 09:17; Admin Dose 20 MG; Start 04/25/17 at 21:00 Enoxaparin Sodium (Lovenox) 40 mg DAILY SC Last administered on 04/26/17 09:23 ; Admin Dose 40 MG; Start 04/26/17 at 09:00 Hydralazine HCl (Apresoline) 10 mg Q6H PRN IV SBP>160; Start 04/25/17 at 18:30 Atorvastatin Calcium (Lipitor) 20 mg QHS PO Last administered on 04/25/17 22: 55; Admin Dose 20 MG; Start 04/25/17 at 21:00 Losartan Potassium (Cozaar) 50 mg DAILY PO Last administered on 04/26/17 09:18 ; Admin Dose 50 MG; Start 04/26/17 at 09:00 Acetaminophen (Tylenol Tab) 500 mg Q6H PRN PO PAIN AND OR ELEVATED TEMP; Start 04/25/17 at 18:30 Meclizine HCl (Antivert) 25 mg Q6H PRN PO Vertigo Last administered on 14:58; Admin Dose 25 MG; Start 04/26/17 at 14:00 ANAI SANDRA MD Apr 26, 2017 17:34
--- NOTE | 2017-04-26 17:54 | RADRPT ---
Echocardiogram Report Patient Name: CASEY SAHA Gender: Female Date: 1950 Study Date: 26-Apr-2017 Vp Site: [facility] Location: 5548 Ref. Physician: GRACE ISSA Quality: Adequate Procedures: Transthoracic echocardiogram with complete 2D, M-Mode, and doppler examination. Indications: Chest Pain. 2D/M Mode Doppler Measurement Value Normal Ranges Measurement Value Normal Ranges LVIDd 2D 4.2 3.5 - 5.6 cm AV Peak Kane 1.2 m/sec LVIDs 2D 3.1 2.1 - 4.1 cm AV Peak PG 6.0 mmHg FS 2D 27.1 % AI Peak PG 34.0 mmHg LVPWd 2D 1.1 0.6 - 1.1 cm AI Peak Kane 2.9 m/sec IVSd 2D 1.1 0.6 - 1.1 cm AI PHT 860.0 msec IVS/LVPW 2D 1.0 LVOT Peak Kane 1.0 m/sec AoR Diam 2D 2.5 2.0 - 3.7 cm LVOT Peak PG 4.0 mmHg LA/Ao 2D 2 0 - 1 MV E Peak Kane 0.6 m/sec EDV 2D 74.1 cm3 MV A Peak Kane 0.8 m/sec ESV 2D 28.7 cm3 MV E/A 0.7 LA Dimen 2D 4.2 2.3 - 4.0 cm MV Decel Time 292 msec MV E/A 0.7 Findings Left Ventricle: Normal left ventricular systolic function. Normal left ventricular cavity size. Normal left ventricular wall thickness. Ejection fraction is visually estimated at 55 %. Tissue Doppler/Mitral Doppler indices are consistent with impaired relaxation (Stage I diastolic dysfunction). Right Ventricle: Normal right ventricular size. Normal right ventricular systolic function. Left Atrium: There is mild enlargement of left atrium. Right Atrium: The right atrium is normal in size. Mitral Valve: Mild mitral leaflet calcification. Mild mitral annular calcification. Trace mitral regurgitation. Aortic Valve: Aortic cusps appear mildly calcified. Aortic valve opens normally. Mild aortic valve regurgitation. Tricuspid Valve: Normal appearance of the tricuspid valve. Unable to obtain RVSP due to minimal presence of tricuspid regurgitation. There is trace tricuspid regurgitation. Pulmonic Valve: Pulmonic valve not well visualized. There is trace pulmonic regurgitation. Pericardium: Normal pericardium with no significant pericardial effusion. Aorta: Normal aortic root. IVC: Normal size and normal respiratory collapse consistent with normal right atrial pressure. Conclusions 1.Normal left ventricular systolic function. Normal left ventricular cavity size. Normal left ventricular wall thickness. Ejection fraction is visually estimated at 55 %. Tissue Doppler/Mitral Doppler indices are consistent with impaired relaxation (Stage I diastolic dysfunction). 2.Mild mitral leaflet calcification. Mild mitral annular calcification. Trace mitral regurgitation. 3.Aortic cusps appear mildly calcified. Aortic valve opens normally. Mild aortic valve regurgitation. 4.Normal appearance of the tricuspid valve. Unable to obtain RVSP due to minimal presence of tricuspid regurgitation. There is trace tricuspid regurgitation. Electronically Signed By: Memo Castañeda 26-Apr-2017 17:53:55 -0700 Patient Name: CASEY SAHA Study Date: 26-Apr-2017 [id number]
[2017-04-26] MEDS: ACETAMINOPHEN 500 MG TAB PO PRN (18:26)
[2017-04-26] MEDS: ATORVASTATIN 20 MG TAB PO SCH (20:08)
[2017-04-27] VITALS (9 sets, daily range): BP systolic 112–141; BP diastolic 54–73; PULSE 58–75; RESP 15–18
[2017-04-27 07:32] LABS: BASOPHILS % 0.7 % (0.0-2.0); EOSINOPHILS # 0.2 10^3/ul (0.0-0.5); EOSINOPHILS % 3.7 % (0.0-7.0); HEMATOCRIT 35.8 % (37.0-47.0); HEMOGLOBIN 11.8 g/dl (12.0-16.0); LYMPHOCYTES # 2.2 10^3/ul (0.8-2.9); MEAN CORPUSCULAR HEMOGLOBIN 30.1 pg (29.0-33.0); MEAN CORPUSCULAR VOLUME 91.3 fl (82.0-101.0); MONOCYTE # 0.5 10^3/ul (0.3-0.9); MONOCYTES % 8.3 % (0.0-11.0); NEUTROPHIL # 2.6 10^3/ul (1.6-7.5); NEUTROPHILS % 47.1 % (39.0-77.0); PLATELET COUNT 299 10^3/UL (140-415); RED BLOOD COUNT 3.92 10^6/ul (4.20-5.40); WHITE BLOOD COUNT 5.5 10^3/ul (4.8-10.8)
[2017-04-27 07:39] LABS: ADD SCAN DIFF NO
[2017-04-27 07:55] LABS: CALCIUM 9.5 mg/dl (8.4-10.2); CREATININE 0.63 mg/dl (0.44-1.00); POTASSIUM 4.1 mmol/L (3.5-5.1)
[2017-04-27 07:56] LABS: PHOSPHORUS 4.2 mg/dl (2.5-4.9)
[2017-04-27] MEDS: FAMOTIDINE 20 MG TAB PO SCH ×2 (09:26→20:07)
[2017-04-27] MEDS: MECLIZINE 25 MG TAB PO PRN ×2 (09:26→20:07)
[2017-04-27] MEDS: ASPIRIN 81 MG TAB PO SCH (09:26)
[2017-04-27] MEDS: LOSARTAN 50 MG TAB PO SCH (09:27)
[2017-04-27] MEDS: ENOXAPARIN 40 MG/0.4 ML SYG SC SCH (09:32)
[2017-04-27] MEDS: ACETAMINOPHEN 500 MG TAB PO PRN (10:35)
--- NOTE | 2017-04-27 12:56 | PN ---
Date/Time of Note Date/Time of Note DATE: 04/27/17 TIME: 12:54 Assessment/Plan VTE Prophylaxis VTE Prophylaxis Intervention: SCD's Lines/Catheters IV [facility] Saline Lock Assessment/Plan Chief Complaint/Hosp Course 1. Chest pain. Acute coronary syndrome ruled out. Serial troponins negative so far. 2D echocardiogram showing preserved left ventricular ejection fraction. Cardiology evaluation pending 2. Vertigo. Etiology unclear. Most probably benign paroxysmal positional vertigo. Brain CT scan negative. Continue orthostatic vital signs. Will continue the patient on labyrinthine sedatives. Carotid Doppler study showing elevated peak systolic velocities in the left internal carotid artery suggesting 50-69% stenosis. CT angiogram of the neck negative for any stenosis of the internal carotid arteries. Pending brain MRI. Neurology following. 3. Essential hypertension. Continue antihypertensives including PRN antihypertensives for any systolic blood pressures greater than 160 mmHg. 4. Dyslipidemia. The patient will be continued on statins. Fasting lipid panel suboptimal. 5. Diarrhea. Resolved. Most probably viral gastroenteritis. Pending stool studies. 6. Prediabetes. Hemoglobin A1c 6.3. Will reinforce a low carbohydrate diet. Obtain dietary consult. 7. Fluids, electrolytes, and nutrition. Low-cholesterol, carbohydrate controlled diet. 8. DVT prophylaxis. Bilateral sequential compression devices. 9. Gastrointestinal prophylaxis with histamine 2 receptor blockers. Plan. Continue telemetry monitoring. Continue as needed meclizine. Pending brain MRI. Case discussed with . The plan of care was explained to the patient's family was at the bedside. Problems: Subjective 24 Hr Interval Summary Free Text/Dictation Continues to have vertigo. Pending brain MRI. Exam/Review of Systems Vital Signs Vitals Vital Signs Date Time Temp Pulse Resp B/P Pulse Ox O2 Delivery O2 Flow Rate FiO2 04/27/17 12:00 97.7 71 18 141/67 97 Room Air Intake and Output 04/26/17 04/26/17 04/27/17 15:00 23:00 07:00 Intake Total 1500 ml Balance 1500 ml Exam General: Adequately build 66 year-old female lying in bed in no apparent distress. HEENT: Normocephalic, atraumatic. Eyes: Anicteric sclerae, conjunctivae clear. ENT: Nasal septum midline, oral mucosa moist. Neck supple, no JVD noticed. Respiratory: Bilaterally clear breath sounds. No use of accessory muscles of respiration. No adventitious breath sounds. Cardiovascular: S1, S2 heard. Regular rate and rhythm Abdomen: Soft, nontender, and nondistended. Bowel sounds positive in all 4 quadrants. Genitourinary: Deferred. Extremities: No cyanosis, no clubbing, no edema. Peripheral pulses palpable. Neurologic: Cranial nerves II through XII grossly intact. The patient is awake, alert, and oriented. Equal strength in all 4 extremities. No focal weakness. Skin: Normal skin turgor. No skin rashes. Results Result Diagram: 04/27/17 0700 04/27/17 07 Results 24 hrs Laboratory Tests Test 04/27/17 07:00 White Blood Count 5.5 Red Blood Count 3.92 L Hemoglobin 11.8 L Hematocrit 35.8 L Mean Corpuscular Volume 91.3 Mean Corpuscular Hemoglobin 30.1 Mean Corpuscular Hemoglobin Concent 33.0 Red Cell Distribution Width 14.0 Platelet Count 299 Mean Platelet Volume 9.0 Neutrophils % 47.1 Lymphocytes % 40.0 Monocytes % 8.3 Eosinophils % 3.7 Basophils % 0.7 Nucleated Red Blood Cells % 0.0 Neutrophils # 2.6 Lymphocytes # 2.2 Monocytes # 0.5 Eosinophils # 0.2 Basophils # 0.0 Nucleated Red Blood Cells # 0.0 Sodium Level 143 Potassium Level 4.1 Chloride Level 101 Carbon Dioxide Level 28 Anion Gap 18 H Blood Urea Nitrogen 13 Creatinine 0.63 Glucose Level 97 Calcium Level 9.5 Phosphorus Level 4.2 Magnesium Level 2.0 Medications Medications Current Medications Ondansetron HCl (Zofran Inj) 4 mg Q6H PRN IV NAUSEA AND/OR VOMITING Last administered on 04/26/17 12:22; Admin Dose 4 MG; Start 04/25/17 at 18:00 Aspirin (Aspirin) 81 mg DAILY PO Last administered on 04/27/17 09:26; Admin Dose 81 MG; Start 04/26/17 at 09:00 Morphine Sulfate (morphine) 2 mg Q4H PRN IV PAIN LEVEL 7-10; Start 04/25/17 at 18:00 Famotidine (Pepcid) 20 mg Q12 PO Last administered on 04/27/17 09:26; Admin Dose 20 MG; Start 04/25/17 at 21:00 Enoxaparin Sodium (Lovenox) 40 mg DAILY SC Last administered on 04/27/17 09:32 ; Admin Dose 40 MG; Start 04/26/17 at 09:00 Hydralazine HCl (Apresoline) 10 mg Q6H PRN IV SBP>160; Start 04/25/17 at 18:30 Atorvastatin Calcium (Lipitor) 20 mg QHS PO Last administered on 04/26/17 20:08 ; Admin Dose 20 MG; Start 04/25/17 at 21:00 Losartan Potassium (Cozaar) 50 mg DAILY PO Last administered on 04/27/17 09:27 ; Admin Dose 50 MG; Start 04/26/17 at 09:00 Acetaminophen (Tylenol Tab) 500 mg Q6H PRN PO PAIN AND OR ELEVATED TEMP Last administered on 04/27/17 10:35; Admin Dose 500 MG; Start 04/25/17 at 18:30 Meclizine HCl (Antivert) 25 mg Q6H PRN PO Vertigo Last administered on 09:26; Admin Dose 25 MG; Start 04/26/17 at 14:00 GRACE ISSA NP Apr 27, 2017 12:56
--- NOTE | 2017-04-27 16:26 | CONS ---
Date/Time of Note Date/Time of Note DATE: 04/27/17 TIME: 16:25 Assessment/Plan Assessment/Plan Additional Assessment/Plan 1. Chest pain. To rule out acute coronary syndrome. Serial troponins will be obtained. A 2D echocardiogram will be obtained. Cardiology consult will be obtained. R/o NC - will monitor for now. Yaakov consider in-pt vs outpt stress test. WILL FACILITATE STRESS TEST TOMORROW. 2. Vertigo. Etiology unclear. Most probably benign paroxysmal positional vertigo. Brain CT scan negative. Will obtain orthostatic vital signs. Will start the patient on as needed labyrinthine sedatives. Will obtain a neurology consult. Will obtain a carotid Doppler study to evaluate for any carotid artery disease. 3. Essential hypertension. The patient will be resumed on her home antihypertensives. The patient will also be maintained on as needed antihypertensives for any systolic blood pressures greater than 160 mmHg. BETTER now. 4. Dyslipidemia. The patient will be continued on statins. A fasting lipid panel will be obtained. 5. Diarrhea. Most probably viral gastroenteritis. We will obtain stool studies. RESOLVING. Consultation Date/Type/Reason Admit Date/Time Apr 25, 2017 at 16:47 24 HR Interval Summary Free Text/Dictation WILL FACILITATE STRESS TEST TOMORROW. ROS: No fever, no chills, no nausea, no vomiting, no diarrhea/constipation No recent weight changes No chest pain, no PND, no orthopnea No dizziness, blurred vision No thirst, no heat or cold intolerance Exam/Review of Systems Vital Signs Vitals Vital Signs Date Time Temp Pulse Resp B/P Pulse Ox O2 Delivery O2 Flow Rate FiO2 04/27/17 16:18 98.7 75 18 136/73 97 Room Air Intake and Output 04/26/17 04/26/17 04/27/17 14:59 22:59 06:59 Intake Total 1500 ml Balance 1500 ml Exam General: WN/WD/NAD, AOx 3 HEENT: Unicetric/atraumatic/EOMI (follow commands) NECK: JVD elevated, no thyromegaly Lymph: no lymphadenopathy HEART: regular with no S3, II/ systolic murmur at apex LUNGS: Coarse sounds ABD: soft, NT, ND, +BS : Intact Neuro: non focal SKIN: chronic changes EXT: trace edema Results Result Diagram: 04/27/17 0700 04/27/17 0700 Results 24 hrs Laboratory Tests Test 04/27/17 07:00 White Blood Count 5.5 Red Blood Count 3.92 L Hemoglobin 11.8 L Hematocrit 35.8 L Mean Corpuscular Volume 91.3 Mean Corpuscular Hemoglobin 30.1 Mean Corpuscular Hemoglobin Concent 33.0 Red Cell Distribution Width 14.0 Platelet Count 299 Mean Platelet Volume 9.0 Neutrophils % 47.1 Lymphocytes % 40.0 Monocytes % 8.3 Eosinophils % 3.7 Basophils % 0.7 Nucleated Red Blood Cells % 0.0 Neutrophils # 2.6 Lymphocytes # 2.2 Monocytes # 0.5 Eosinophils # 0.2 Basophils # 0.0 Nucleated Red Blood Cells # 0.0 Sodium Level 143 Potassium Level 4.1 Chloride Level 101 Carbon Dioxide Level 28 Anion Gap 18 H Blood Urea Nitrogen 13 Creatinine 0.63 Glucose Level 97 Calcium Level 9.5 Phosphorus Level 4.2 Magnesium Level 2.0 Medications Medications Current Medications Ondansetron HCl (Zofran Inj) 4 mg Q6H PRN IV NAUSEA AND/OR VOMITING Last administered on 04/26/17 12:22; Admin Dose 4 MG; Start 04/25/17 at 18:00 Aspirin (Aspirin) 81 mg DAILY PO Last administered on 04/27/17 09:26; Admin Dose 81 MG; Start 04/26/17 at 09:00 Morphine Sulfate (morphine) 2 mg Q4H PRN IV PAIN LEVEL 7-10; Start 04/25/17 at 18:00 Famotidine (Pepcid) 20 mg Q12 PO Last administered on 04/27/17 09:26; Admin Dose 20 MG; Start 04/25/17 at 21:00 Enoxaparin Sodium (Lovenox) 40 mg DAILY SC Last administered on 04/27/17 09:32 ; Admin Dose 40 MG; Start 04/26/17 at 09:00 Hydralazine HCl (Apresoline) 10 mg Q6H PRN IV SBP>160; Start 04/25/17 at 18:30 Atorvastatin Calcium (Lipitor) 20 mg QHS PO Last administered on 04/26/17 20:08 ; Admin Dose 20 MG; Start 04/25/17 at 21:00 Losartan Potassium (Cozaar) 50 mg DAILY PO Last administered on 04/27/17 09:27 ; Admin Dose 50 MG; Start 04/26/17 at 09:00 Acetaminophen (Tylenol Tab) 500 mg Q6H PRN PO PAIN AND OR ELEVATED TEMP Last administered on 04/27/17 10:35; Admin Dose 500 MG; Start 04/25/17 at 18:30 Meclizine HCl (Antivert) 25 mg Q6H PRN PO Vertigo Last administered on 09:26; Admin Dose 25 MG; Start 04/26/17 at 14:00 LINDSEY HAMILTON MD Apr 27, 2017 16:26
--- NOTE | 2017-04-27 17:41 | RADRPT ---
PROCEDURE: MRI Brain without contrast. CLINICAL INDICATION: Stroke. TECHNIQUE: An MRI of the brain was performed utilizing the following sequences: Sagittal and axial T1 weighted, axial T2 weighted, axial diffusion weighted with ADC mapping, coronal GRE, and axial F LAIR. COMPARISON: Brain CT 04/25/2017. FINDINGS: There is subtle diffusion abnormality with ADC hypointensity and increased signal intensity on expon ential images in the right occipital lobe concerning for subacute/recent infarct. No hypointense sig nal abnormalities are seen on the GRE images to suggest the presence of blood degradation products. There is no evidence of intracranial hemorrhage, mass effect, or midline shift. No extra-axial flui d collections are seen. The ventricles and sulci are minimally enlarged indicative of volume loss. Cavum septum pellucidum is noted, anatomical variation. There are mild scattered foci of T2 FLAIR hyperintensity in the periventricular, deep, and subcortic al white matter, which are nonspecific in etiology but likely reflect chronic small vessel ischemic changes. No abnormal intracranial vascular flow void is noted. The visualized paranasal sinuses demonstrate m ild scattered mucosal thickening mainly in ethmoid air cells and maxillary sinuses. IMPRESSION: 1. 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 2. No acute intracranial hemorrhage or mass. 3. Mild chronic small vessel ischemic changes. 4. Minimal generalized cerebral volume loss. A call report was made and above findings were discussed and acknowledged by patient's nurse TAVARES meyer on 04/27/2017 5:[address] ISSA. RPTAT: PP .Ender Waite MD, Date Time Electronically viewed and signed by .Ender Waite MD, on 04/27/2017 17:40 .N/
[2017-04-27] MEDS: ATORVASTATIN 20 MG TAB PO SCH (20:07)
[2017-04-28] VITALS (8 sets, daily range): BP systolic 117–132; BP diastolic 63–66; PULSE 58–83; RESP 20
[2017-04-28] MEDS: FAMOTIDINE 20 MG TAB PO SCH (08:31)
[2017-04-28] MEDS: ASPIRIN 81 MG TAB PO SCH (08:31)
[2017-04-28] MEDS: LOSARTAN 50 MG TAB PO SCH (08:31)
[2017-04-28] MEDS: ENOXAPARIN 40 MG/0.4 ML SYG SC SCH (08:34)
[2017-04-28] MEDS: MECLIZINE 25 MG TAB PO PRN ×2 (08:38→16:18)
[2017-04-28] MEDS ORDERED: REGADENOSON 0.4 MG/5 ML SYG ONE (10:53)
--- NOTE | 2017-04-28 11:25 | CONS ---
Date/Time of Note Date/Time of Note DATE: 04/28/17 TIME: 11:24 Assessment/Plan Assessment/Plan Additional Assessment/Plan 1. Chest pain. To rule out acute coronary syndrome. Serial troponins will be obtained. A 2D echocardiogram will be obtained. Cardiology consult will be obtained. R/o [place] - will monitor for now. Yaakov consider in-pt vs outpt stress test. STRESS TEST DONe - will have results later today. 2. Vertigo. Etiology unclear. Most probably benign paroxysmal positional vertigo. Brain CT scan negative. Will obtain orthostatic vital signs. Will start the patient on as needed labyrinthine sedatives. Will obtain a neurology consult. Will obtain a carotid Doppler study to evaluate for any carotid artery disease. 3. Essential hypertension. The patient will be resumed on her home antihypertensives. The patient will also be maintained on as needed antihypertensives for any systolic blood pressures greater than 160 mmHg. BETTER now. 4. Dyslipidemia. The patient will be continued on statins. A fasting lipid panel will be obtained. STABLE. 5. Diarrhea. Most probably viral gastroenteritis. We will obtain stool studies. RESOLVING. Consultation Date/Type/Reason Admit Date/Time Apr 25, 2017 at 16:47 24 HR Interval Summary Free Text/Dictation STRESS TEST DONe - will have results later today. ROS: No fever, no chills, no nausea, no vomiting, no diarrhea/constipation No recent weight changes No chest pain, no PND, no orthopnea No dizziness, blurred vision No thirst, no heat or cold intolerance Exam/Review of Systems Vital Signs Vitals Vital Signs Date Time Temp Pulse Resp B/P Pulse Ox O2 Delivery O2 Flow Rate FiO2 04/28/17 08:00 68 04/28/17 07:45 98.3 20 132/66 96 04/27/17 16:18 Room Air Intake and Output 04/27/17 04/27/17 04/28/17 15:00 23:00 07:00 Intake Total 1600 ml Balance 1600 ml Exam General: WN/WD/NAD, AOx 3 HEENT: Unicetric/atraumatic/EOMI ( follow commands) NECK: JVD elevated, no thyromegaly Lymph: no lymphadenopathy HEART: regular with no S3, II/ systolic murmur at apex LUNGS: Coarse sounds ABD: soft, NT, ND, +BS : Intact Neuro: non focal SKIN: chronic changes EXT: trace edema Results Result Diagram: 04/27/17 0700 04/27/17 0700 Medications Medications Current Medications Ondansetron HCl (Zofran Inj) 4 mg Q6H PRN IV NAUSEA AND/OR VOMITING Last administered on 04/26/17 12:22; Admin Dose 4 MG; Start 04/25/17 at 18:00 Aspirin (Aspirin) 81 mg DAILY PO Last administered on 04/28/17 08:31; Admin Dose 81 MG; Start 04/26/17 at 09:00 Morphine Sulfate (morphine) 2 mg Q4H PRN IV PAIN LEVEL 7-10; Start 04/25/17 at 18:00 Famotidine (Pepcid) 20 mg Q12 PO Last administered on 04/28/17 08:31; Admin Dose 20 MG; Start 04/25/17 at 21:00 Enoxaparin Sodium (Lovenox) 40 mg DAILY SC Last administered on 04/28/17 08:34 ; Admin Dose 40 MG; Start 04/26/17 at 09:00 Hydralazine HCl (Apresoline) 10 mg Q6H PRN IV SBP>160; Start 04/25/17 at 18:30 Atorvastatin Calcium (Lipitor) 20 mg QHS PO Last administered on 04/27/17 20:07 ; Admin Dose 20 MG; Start 04/25/17 at 21:00 Losartan Potassium (Cozaar) 50 mg DAILY PO Last administered on 04/28/17 08:31 ; Admin Dose 50 MG; Start 04/26/17 at 09:00 Acetaminophen (Tylenol Tab) 500 mg Q6H PRN PO PAIN AND OR ELEVATED TEMP Last administered on 04/27/17 10:35; Admin Dose 500 MG; Start 04/25/17 at 18:30 Meclizine HCl (Antivert) 25 mg Q6H PRN PO Vertigo Last administered on 08:38; Admin Dose 25 MG; Start 04/26/17 at 14:00 LINDSEY HAMILTON MD Apr 28, 2017 11:25
--- NOTE | 2017-04-28 13:48 | PN ---
Date/Time of Note Date/Time of Note DATE: 04/28/17 TIME: 13:46 Assessment/Plan VTE Prophylaxis VTE Prophylaxis Intervention: SCD's Lines/Catheters IV [facility] Saline Lock Urinary Cath still in place: No Assessment/Plan Assessment/Plan 1. Chest pain. Acute coronary syndrome ruled out. Serial troponins negative so far. 2D echocardiogram showing preserved left ventricular ejection fraction. Cardiology evaluation pending 2. Vertigo. Etiology unclear. Most probably benign paroxysmal positional vertigo. Brain CT scan negative. Continue orthostatic vital signs. Will continue the patient on labyrinthine sedatives. Carotid Doppler study showing elevated peak systolic velocities in the left internal carotid artery suggesting 50-69% stenosis. CT angiogram of the neck negative for any stenosis of the internal carotid arteries. Pending brain MRI. Neurology following. 3. Essential hypertension. Continue antihypertensives including PRN antihypertensives for any systolic blood pressures greater than 160 mmHg. 4. Dyslipidemia. The patient will be continued on statins. Fasting lipid panel suboptimal. 5. Diarrhea. Resolved. Most probably viral gastroenteritis. Pending stool studies. 6. Prediabetes. Hemoglobin A1c 6.3. Will reinforce a low carbohydrate diet. Obtain dietary consult. 7. Fluids, electrolytes, and nutrition. Low-cholesterol, carbohydrate controlled diet. 8. DVT prophylaxis. Bilateral sequential compression devices. plan for lexiscan today,if negative then d/c with meclizine Subjective 24 Hr Interval Summary Free Text/Dictation no chest pain, no dizziness, plan for lexiscna today Exam/Review of Systems Vital Signs Vitals Vital Signs Date Time Temp Pulse Resp B/P Pulse Ox O2 Delivery O2 Flow Rate FiO2 04/28/17 12:57 97.8 80 20 117/63 97 04/27/17 16:18 Room Air Intake and Output 04/27/17 04/27/17 04/28/17 15:00 23:00 07:00 Intake Total 1600 ml Balance 1600 ml Exam General: WN/WD/NAD, AOx 3 HEENT: Unicetric/atraumatic/EOMI ( follow commands) NECK: JVD elevated, no thyromegaly Lymph: no lymphadenopathy HEART: regular with no S3, II/ systolic murmur at apex LUNGS: Coarse sounds ABD: soft, NT, ND, +BS : Intact Neuro: non focal SKIN: chronic changes EXT: trace edema Results Result Diagram: 04/27/17 0700 04/27/17 0700 Medications Medications Current Medications Ondansetron HCl (Zofran Inj) 4 mg Q6H PRN IV NAUSEA AND/OR VOMITING Last administered on 04/26/17 12:22; Admin Dose 4 MG; Start 04/25/17 at 18:00 Aspirin (Aspirin) 81 mg DAILY PO Last administered on 04/28/17 08:31; Admin Dose 81 MG; Start 04/26/17 at 09:00 Morphine Sulfate (morphine) 2 mg Q4H PRN IV PAIN LEVEL 7-10; Start 04/25/17 at 18:00 Famotidine (Pepcid) 20 mg Q12 PO Last administered on 04/28/17 08:31; Admin Dose 20 MG; Start 04/25/17 at 21:00 Enoxaparin Sodium (Lovenox) 40 mg DAILY SC Last administered on 04/28/17 08:34 ; Admin Dose 40 MG; Start 04/26/17 at 09:00 Hydralazine HCl (Apresoline) 10 mg Q6H PRN IV SBP>160; Start 04/25/17 at 18:30 Atorvastatin Calcium (Lipitor) 20 mg QHS PO Last administered on 04/27/17 20:07 ; Admin Dose 20 MG; Start 04/25/17 at 21:00 Losartan Potassium (Cozaar) 50 mg DAILY PO Last administered on 04/28/17 08:31 ; Admin Dose 50 MG; Start 04/26/17 at 09:00 Acetaminophen (Tylenol Tab) 500 mg Q6H PRN PO PAIN AND OR ELEVATED TEMP Last administered on 04/27/17 10:35; Admin Dose 500 MG; Start 04/25/17 at 18:30 Meclizine HCl (Antivert) 25 mg Q6H PRN PO Vertigo Last administered on 08:38; Admin Dose 25 MG; Start 04/26/17 at 14:00 SALINAS WATERMAN MD Apr 28, 2017 13:47
[2017-04-28] MEDS ORDERED: MECL-77 PO (13:49)
[2017-04-28] MEDS ORDERED: ASPI81TA3 PO (13:49)
--- NOTE | 2017-04-28 13:49 | PDOCDIS ---
Discharge Instructions CONDITION Patient Condition: Good HOME CARE INSTRUCTIONS: Special Diet: Cardiac ACTIVITY: Activity Restrictions: Slowly Increase Activity Rest between Activity Avoid heavy lifting Avoid Heavy Housework FOLLOW UP/APPOINTMENTS Follow-up Plan follow up with her own PMD in 1-2 week after discharge SALINAS WATERMAN MD Apr 28, 2017 13:49
--- NOTE | 2017-04-28 14:44 | CONS ---
Date/Time of Note Date/Time of Note DATE: 04/28/17 TIME: 14:41 Consult Date/Type/Reason Admit Date/Time Apr 25, 2017 at 16:47 Initial Consult Date Subjective Vertigo is better, resolves with meclizine Objective Vital Signs Date Time Temp Pulse Resp B/P Pulse Ox O2 Delivery O2 Flow Rate FiO2 04/28/17 12:57 97.8 80 20 117/63 97 04/27/17 16:18 Room Air Intake and Output 04/27/17 04/27/17 04/28/17 15:00 23:00 07:00 Intake Total 1600 ml Balance 1600 ml Results/Medications Result Diagram: 04/27/17 0700 04/27/17 0700 Medications Current Medications Ondansetron HCl (Zofran Inj) 4 mg Q6H PRN IV NAUSEA AND/OR VOMITING Last administered on 04/26/17 12:22; Admin Dose 4 MG; Start 04/25/17 at 18:00 Aspirin (Aspirin) 81 mg DAILY PO Last administered on 04/28/17 08:31; Admin Dose 81 MG; Start 04/26/17 at 09:00 Morphine Sulfate (morphine) 2 mg Q4H PRN IV PAIN LEVEL 7-10; Start 04/25/17 at 18:00 Famotidine (Pepcid) 20 mg Q12 PO Last administered on 04/28/17 08:31; Admin Dose 20 MG; Start 04/25/17 at 21:00 Enoxaparin Sodium (Lovenox) 40 mg DAILY SC Last administered on 04/28/17 08:34 ; Admin Dose 40 MG; Start 04/26/17 at 09:00 Hydralazine HCl (Apresoline) 10 mg Q6H PRN IV SBP>160; Start 04/25/17 at 18:30 Atorvastatin Calcium (Lipitor) 20 mg QHS PO Last administered on 04/27/17 20:07 ; Admin Dose 20 MG; Start 04/25/17 at 21:00 Losartan Potassium (Cozaar) 50 mg DAILY PO Last administered on 04/28/17 08:31 ; Admin Dose 50 MG; Start 04/26/17 at 09:00 Acetaminophen (Tylenol Tab) 500 mg Q6H PRN PO PAIN AND OR ELEVATED TEMP Last administered on 04/27/17 10:35; Admin Dose 500 MG; Start 04/25/17 at 18:30 Meclizine HCl (Antivert) 25 mg Q6H PRN PO Vertigo Last administered on 08:38; Admin Dose 25 MG; Start 04/26/17 at 14:00 Assessment/Plan Chief Complaint/Hosp Course NEUROLOGIC EXAMINATION: She is awake, alert, and oriented x 3 with fluent speech. Cranial nerve examination shows intact visual jacobs bilaterally. Pupils round, reactive to light from 3 to 2 mm bilaterally. Extraocular movements intact without nystagmus. Symmetrical face. Preserved facial strength and sensation. Tongue is in midline. Palate elevates symmetrically. Motor strength examination is preserved in all extremities. Normal bulk, tone, and strength. Sensory examination shows normal perception of pinprick and touch. Deep tendon reflexes 2+ . Downgoing toes bilaterally. Coordination preserved on [id number] testing. No dysmetria or tremor. Gait was not assessed. IMPRESSION: Acute vertigo, resolving. Likely BPPV. "Suspect small right occipital CVA" on MRI, does not seem to fit the clinical picture, may be artifact. Cont meclizine, ASA, statin, keep euglycemic, normotensive. OK to d/ c. F/u 1 mo Problems: ANAI SANDRA MD Apr 28, 2017 14:43
--- NOTE | 2017-04-28 15:41 | RADRPT ---
PROCEDURE: Nuclear medicine myocardial stress and rest scan. CLINICAL INDICATION: Chest pain. TECHNIQUE: The patient was stressed with 0.4 mg IV Lexiscan. 10 mCi technetium 99m Tetrofosmin ( Myoview) was administered rest. 30.9 mCi technetium 99m Tetrofosmin (Myoview) was administered dur ing stress. Images were obtained and reconstructed in the short axis, horizontal long axis, and jerry tical long axis. Gated images were obtained and ejection fraction was calculated. COMPARISON: No prior study is available for comparison. FINDINGS: The stress and rest images demonstrate normal uptake throughout. There is no fixed abnormality or r eversible abnormality. There is no evidence of transient ischemic dilatation. Wall motion is normal. There is normal wall thickening during systole. Ejection fraction at stress is 70%. IMPRESSION: 1. No evidence of stress induced myocardial ischemia. 2. Ejection fraction at stress is 70%. RPTAT: QQ .Spencer Maynard MD, MD Date Time Electronically viewed and signed by .Spencer Maynard MD, on 04/28/2017 15:40 .R/
--- NOTE | 2017-04-28 21:03 | DS ---
Date/Time of Note Date/Time of Note DATE: 04/28/17 TIME: 20:57 Discharge Summary Admission/Discharge Info Admit Date/Time Apr 25, 2017 at 16:47 Discharge Date/Time Apr 28, 2017 at 16:53 Discharge Diagnosis 1. Atypical chest pain Lexiscan negative 2. MRI showed subacute/Recent Rigth occipital infarct 3. hypertension 4. Hyperlipidemi 5. prediabetes Patient Condition: Good Consults Physical Therapist Consult /[facility] consult Procedures Lexiscan negative for acute perfusion defect, EF normal MRI brain showed subacute/recent CVA in occipital lobe Hx of Present Illness Reason for admission: Sent in by primary MD for further evaluation of dizziness , weakness, and chest pain. Consultants 1. Nikolay Yuan MD, Cardiology. 2. Neo Hinds MD, Neurology. This is a 66-year-old female with past medical history of essential hypertension and dyslipidemia who went to visit her primary care physician because of multiple complaints. The patient's physician referred the patient to the ER for further evaluation. The patient reported that she was completely fine on the night of 04/24/2017. Starting on the morning of 04/25/2017 she started feeling dizziness with vertigo and 2 episodes of nonbilious nonbloody vomiting. Patient also reported 3-4 episodes of watery diarrhea. Patient also reported left-sided chest pain that has been constant with no radiation. She reported no diaphoresis. She denied any fevers, chills, abdominal pain, hematochezia, melena, dysuria, hematuria, or pyuria. The patient verbalized that she had a complete cardiac workup done approximately an year ago with a 2D echocardiogram and treadmill test that was reportedly negative. In the emergency room, the patient's initial troponins were negative. The patient's CBC and BMP were within normal limits. The patient underwent a brain CT scan that showed no acute intracranial hemorrhage. The patient's chest x- ray was negative for any active cardiopulmonary disease. Patient's 12-lead EKG showed right bundle branch block. The patient was treated with a single dose of lorazepam, meclizine, aspirin, and transdermal nitroglycerin. The patient had a blood pressure of 170/84 upon presentation. Hospital Course She presented with chest pain, had a cardiology consultation and lexiscan was negative for perfusion defect, EF normal pt continue to have dizziness which was initially diagnosed with BPPV she had a MRI brain done that showed Right occipital subacute CVA. she was started on ASA for antiplateralet therapy and had a neurology consultation done by . After negative lexiscan she gets discharged home Home Meds Active Scripts Meclizine Hcl* (Meclizine Hcl*) 25 Mg Tablet, 25 MG PO Q6H Y for Vertigo, #60 TAB Prov:SALINAS WATERMAN MD 04/28/17 Aspirin (Aspirin) 81 Mg Chew, 81 MG PO DAILY, #100 TAB Prov:SALINAS WATERMAN MD 04/28/17 Reported Medications Atorvastatin Calcium* (Atorvastatin Calcium*) 20 Mg Tablet, 20 MG PO QHS, #30 TAB 04/25/17 Losartan Potassium* (Losartan Potassium*) 50 Mg Tablet, 50 MG PO DAILY, TAB 04/25/17 Discontinued Scripts Ibuprofen* (Motrin*) 400 Mg Tab, 400 MG PO Q8 for PAIN AND/OR INFLAMMATION, #30 TAB Prov:CHRISTOPHER GUEVARA MD 03/15/17 Lorazepam* (Ativan*) 0.5 Mg Tablet, 0.5 MG PO BID Y for MUSCLE SPASMS, #10 TAB Prov:CHRISTOPHER GUEVARA MD 03/15/17 Acetaminophen* (Tylenol*) 500 Mg Tab, 500 MG PO Q4H Y for MILD PAIN LEVEL 1-3, # 14 TAB Prov:ALINE ANTUNEZ DO 05/05/16 Follow-up Plan Follow up with her own PMD through HMO Insurance in 1-2 week after discharge, Follow up with Cardiology and Neurology as outpatient through [employer] Primary Care Provider Kg Long Time spent on discharge: > 30 minutes SALINAS WATERMAN MD Apr 28, 2017 21:03
== END 2017-04-28 16:53 | disposition home or self-care (01) | DRG 66 ==
LOC: E/R 13:17 → MS4 16:47
PROVIDERS: ADMIT Family Medicine; ATTEND Family Medicine
DX: I63.9 Cerebral infarction, unspecified (principal); I10 Essential (primary) hypertension; H81.10 Benign paroxysmal vertigo, unspecified ear; E78.5 Hyperlipidemia, unspecified; R19.7 Diarrhea, unspecified; R73.03 Prediabetes; R07.89 Other chest pain
CPT/HCPCS: 36415; 70450; 70498; 70551; 71010; 78452; 80048; 80053; 80061; 82306; 82550; 82553; 82607; 82652; 83036; 83735; 84100; 84439; 84443; 84484; 85025; 85610; 85730; 93005; 93017; 93306; 93880; 96374; A9500; A9505; J1650; J2060; J2405; J2785; Q9967